=== PATIENT | female | born 1935 | race Caucasian/White ===

== ENCOUNTER → 2017-02-15 | Outpatient (CLI) | payer OTHER ==
[~2017-02-15] MED LIST: ADVIN10/60 INH; LEVO88TA PO; PRLSR20 PO; [UNRECOGNIZED DRUG - CODE] INH
--- NOTE | 2017-02-15 13:05 | MAMMOGRAPHY REPORT ---
BILATERAL DIGITAL SCREENING MAMMOGRAM WITH CAD: 02/15/2017 CLINICAL HISTORY: Routine screening. TECHNIQUE: Current study was also evaluated with a Computer Aided Detection (CAD) system. Bilateral CC and MLO views were obtained. COMPARISON: Comparison is made to exams dated: 02/11/2016 mammogram, 01/13/2015 mammogram, 06/18/2013 mammogram, 06/15/2012 mammogram, 06/14/2011 mammogram, and 06/10/2010 mammogram - [facility]. BREAST COMPOSITION: The tissue of both breasts is almost entirely fatty. FINDINGS: No suspicious masses, calcifications, or areas of architectural distortion are noted in ei ther breast. There has been no significant interval change compared to prior exams. Scattered bilater al benign-appearing calcifications are not significantly changed. IMPRESSION: ACR BI-RADS CATEGORY 2: BENIGN There is no mammographic evidence of malignancy. A 1 year screening mammogram is recommended. The pa tient will receive written notification of the results. Approximately 10% of breast cancers are not detected with mammography. A negative mammographic report should not delay biopsy if a clinically suggestive mass is present. Hayley Morales M.D. /:02/15/2017 12:13:00 Inspector Outside Production: Irene MCRAE(Darshana)(M), [facility] letter sent: Normal 1/2 BI-RADS Code: ACR BI-RADS Category 2: Benign
== END | disposition home or self-care (01) ==
LOC: C.MAMM 10:51
PROVIDERS: ATTEND Internal Medicine Pulmonary Disease
DX: Z12.31 Encounter for screening mammogram for malignant neoplasm of breast (principal)

== ENCOUNTER → 2017-06-06 | Outpatient (CLI) | payer OTHER ==
[2017-06-06 09:39] LABS: BASO % 0.4 %; BASO ABS # 0.03 K/uL (0-0.2); COMPLETE YES; EOS % 3.5 %; HEMATOCRIT 38.8 % (37-47); IG% 0.1 %; LYMPH % 25.1 %; LYMPH ABS # 1.78 K/uL (1.2-3.4); MEAN CELL VOLUME 85.3 fL (80-100); MEAN CORPUSCULAR HEMOGLOBIN 27.5 pg (25-34); MEAN CORPUSCULAR HGB CONC 32.2 g/dl (32-36); MEAN PLATELET VOLUME 10.5 fL (7.4-10.4); MONO % 8.7 %; NEUT % 62.2 %; PLATELET COUNT 285 K/uL (130-400); RED BLOOD COUNT 4.55 M/uL (4.2-5.4)
[2017-06-06 10:03] LABS: ALT/SGPT 25 U/L (12-78); AST/SGOT 23 U/L (15-37); BLOOD UREA NITROGEN 17 mg/dl (7-18); BUN/CREATININE RATIO 28.5 (10-20); CALCIUM 8.7 mg/dl (8.5-10.1); CARBON DIOXIDE 27 mmol/L (21-32); CHLORIDE 105 mmol/L (98-107); CHOLESTEROL 237 mg/dl (0-200); CREATININE 0.61 mg/dl (0.60-1.20); GLUCOSE 118 mg/dl (70-99); POTASSIUM 4.2 mmol/L (3.5-5.1); SODIUM 138 mmol/L (136-145); TRIGLYCERIDES 94 mg/dl (0-150); VERY LOW DENSITY LIPOPROT CALC 19 mg/dl
[2017-06-06 10:13] LABS: ALKALINE PHOSPHATASE 82 U/L (45-117); CHOLESTEROL/HDL RATIO 4.1; HDL CHOLESTEROL 58 mg/dl; LDL CHOLESTEROL CALCULATED 160 mg/dl; THYROID STIMULATING HORMONE 0.559 uIu/ml (0.300-4.500)
== END | disposition home or self-care (01) ==
LOC: C.LAB1850 08:38
PROVIDERS: ATTEND Internal Medicine Pulmonary Disease
DX: J45.909 Unspecified asthma, uncomplicated (principal); E78.5 Hyperlipidemia, unspecified; E03.9 Hypothyroidism, unspecified; G60.0 Hereditary motor and sensory neuropathy

== ENCOUNTER 2017-08-13 09:40 | Emergency (ER) | payer OTHER ==
[~2017-08-13] VITALS: Ht 157.5 cm; Wt 77.4 kg
[2017-08-13 09:46] VITALS: Ht 157.5 cm; Wt 77.4 kg
[2017-08-13] MEDS ORDERED: ALBUT/IPRATROP 3MG/0.5MG NEB 3 ML VIAL INH STA ×2 (10:35→12:13)
--- NOTE | 2017-08-13 10:42 | EMERGENCY ROOM VISIT NOTE ---
History Report prepared by Alba: Fabiano Kaur Under the Supervision of: Dr. Ilya Ceja M.D. First contact with patient: 10:19 Chief Complaint: RESPIRATORY PROBLEMS Stated Complaint: COLD,RESPIRATORY ISSUES,ASTHMA Nursing Triage Summary: pt reports cold and cough with lots of flem yellow mucus. pt reports unable to lie down due to mucus has upset stomach, ear plugged, and head feels full. has tightness in chest from coughing and hx of asthma History of Present Illness The patient is an 82 year old female who presents to the Emergency Room with complaints of persistent productive cough with yellow sputum for three days RADIOGRAPHER MAMMOGRAPHER. She notes loss of sleep, headache, body aches, chest tightness, sick contacts, and left ear plugged. She currently rates her pain 1/10 in severity. She denies any fevers, shortness of breath, abdominal pain, leg pain, or leg swelling. She has a history of asthma and regularly takes Advair. She notes that she has been using Albuterol treatments, though she normally does not have to use Albuterol. She has braces on both legs. Source of History: patient Onset: three days RADIOGRAPHER MAMMOGRAPHER Position: other (global ) Symptom Intensity: 1/10 Quality: other (productive cough) Timing: other (persistent) Associated Symptoms: + headache, + chest pain (chest tightness), No fevers, No SOB, No abdominal pain Note: She notes loss of sleep, body aches, sick contacts, and left ear "plugged." She denies any leg pain or leg swelling. Review of Systems All systems have been listed, reviewed, and are negative other than those previously mentioned. Please see Additional Medical History Sheet. Past Medical & Surgical Medical Problems: (1) Asthma (2) Bronchitis (3) Gjcxhbl-Tqyzx-Wwgiz disease (4) Kidney disease (5) Ulcer Surgical Problems: (1) History of hysterectomy (2) Hx of tonsillectomy Family History Cancer Diabetes mellitus Heart disease Hypertension Lung disease Social History Smoking Status: Never Smoker Alcohol Use: none Marital Status: single Housing Status: lives alone Occupation Status: unemployed Current/Historical Medications Scheduled Fluticasone Prop/Salmeterol (Advair Diskus 100/50 Mcg *), 1 PUFF INH DAILY Levothyroxine Sodium (Synthroid), 88 MCG PO DAILY Omeprazole (Prilosec), 20 MG PO DAILY Prednisone (Prednisone), 20 MG PO BID Sulfa/Trimethoprim (Bactrim Ds 800MG/160MG), 1 TAB PO BID Allergies Coded Allergies: No Known Drug Allergy (Verified Allergy, Unknown, ., 08/13/17) Physical Exam Vital Signs Date Time Temp Pulse Resp B/P (MAP) Pulse Ox O2 Delivery O2 Flow Rate FiO2 08/13/17 14:46 36.8 107 15 169/76 94 08/13/17 14:36 107 15 94 08/13/17 14:31 169/76 08/13/17 14:06 115 20 93 08/13/17 14:01 160/52 08/13/17 13:36 90 12 99 08/13/17 13:31 142/65 08/13/17 13:25 88 22 98 Room Air 08/13/17 13:02 139/92 08/13/17 13:02 92 20 139/92 99 Room Air 08/13/17 12:50 97 16 98 08/13/17 12:31 146/82 08/13/17 12:30 104 16 94 Room Air 08/13/17 12:20 106 14 90 08/13/17 12:02 196/85 08/13/17 11:50 93 12 97 08/13/17 11:45 90 14 98 08/13/17 11:32 144/56 08/13/17 11:15 97 14 98 08/13/17 11:10 92 13 93 08/13/17 11:03 93 Room Air 08/13/17 11:01 152/78 08/13/17 10:40 105 24 95 08/13/17 10:31 173/80 08/13/17 10:10 92 16 95 08/13/17 10:04 99 08/13/17 10:01 182/88 08/13/17 09:46 36.8 112 20 191/74 94 Room Air Physical Exam GENERAL: Patient awake, alert, oriented x 3. Patient follows commands. Patient does not appear toxic. Patient is adequately hydrated and well- nourished. SKIN: No erythema, pallor, cyanosis or rash HEENT: Normal head, pupils equal, reactive to light and accommodation. Cerumen impaction in left ear. Slight erythema to posterior oropharynx. No pus. No exudates. Neck: Without adenopathy, no neck vein distention. LUNGS: Clear to auscultation. No wheezes, no rales, no rhonchi. HEART: No murmurs. No gallops. No rubs ABDOMEN: No masses, no rebound, no hepatomegaly or splenomegaly. EXTREMITIES: No signs of trauma. No pedal or pretibial edema. No calf or thigh tenderness. Braces on legs bilaterally. NEUROLOGIC: Cranial nerves II-XII within normal limits. No gross motor sensory function deficits. Medical Decision & Procedures ER Provider Diagnostic Interpretation: Radiology results as stated below per my review and radiologist interpretation: CHEST 2 VIEWS ROUTINE CLINICAL HISTORY: wheezing COMPARISON STUDY: No previous studies for comparison. FINDINGS: The heart is at the upper limits of normal in size. There is no failure. There are old left-sided rib fractures. There is right middle lobe finding loss/consolidation. This is age-indeterminate. Clinical and radiographic follow-up is recommended.[ There are old wedge compression deformities near the thoracolumbar junction with mild secondary gibbus deformities IMPRESSION: 1. Age indeterminate right middle lobe volume loss/consolidation. Clinical and radiographic follow-up is recommended.. Electronically signed by: Addison Cabezas M.D. 08/13/2017 12:06 PM Dictated Date/Time: 08/13/2017 12:03 PM Laboratory Results 08/13/17 10:56 Red Blood Count 4.58, Mean Corpuscular Volume 84.9, Mean Corpuscular Hemoglobin 27.5, Mean Corpuscular Hemoglobin Concent 32.4, Mean Platelet Volume 9.7, Neutrophils (%) (Auto) 70.5, Lymphocytes (%) (Auto) 15.4, Monocytes (%) (Auto) 12.2, Eosinophils (%) (Auto) 1.4, Basophils (%) (Auto) 0.3, Neutrophils # (Auto ) 4.17, Lymphocytes # (Auto) 0.91, Monocytes # (Auto) 0.72, Eosinophils # (Auto ) 0.08, Basophils # (Auto) 0.02 08/13/17 10:56 Test 08/13/17 10:56 White Blood Count 5.91 K/uL (4.8-10.8) Red Blood Count 4.58 M/uL (4.2-5.4) Hemoglobin 12.6 g/dL (12.0-16.0) Hematocrit 38.9 % (37-47) Mean Corpuscular Volume 84.9 fL (80-100) Mean Corpuscular Hemoglobin 27.5 pg (25-34) Mean Corpuscular Hemoglobin Concent 32.4 g/dl (32-36) Platelet Count 262 K/uL (130-400) Mean Platelet Volume 9.7 fL (7.4-10.4) Neutrophils (%) (Auto) 70.5 % Lymphocytes (%) (Auto) 15.4 % Monocytes (%) (Auto) 12.2 % Eosinophils (%) (Auto) 1.4 % Basophils (%) (Auto) 0.3 % Neutrophils # (Auto) 4.17 K/uL (1.4-6.5) Lymphocytes # (Auto) 0.91 K/uL (1.2-3.4) Monocytes # (Auto) 0.72 K/uL (0.11-0.59) Eosinophils # (Auto) 0.08 K/uL (0-0.5) Basophils # (Auto) 0.02 K/uL (0-0.2) RDW Standard Deviation 47.8 fL (36.4-46.3) RDW Coefficient of Variation 15.4 % (11.5-14.5) Immature Granulocyte % (Auto) 0.2 % Immature Granulocyte # (Auto) 0.01 K/uL (0.00-0.02) Anion Gap 8.0 mmol/L (3-11) Est Creatinine Clear Calc Drug Dose 61.8 ml/min Estimated GFR () 94.8 Estimated GFR (Non- 81.8 BUN/Creatinine Ratio 22.7 (10-20) Calcium Level 9.0 mg/dl (8.5-10.1) Troponin I < 0.015 ng/ml (0-0.045) Laboratory results as stated above per my review. Medications Administered Medications (Trade) Dose Ordered Sig/Sania Route Start Time Stop Time Status Last Admin Dose Admin Albuterol/ Ipratropium (Duoneb) 3 ml NOW STAT INH 08/13/17 10:35 08/13/17 10:37 DC 08/13/17 11:11 3 ML Albuterol/ Ipratropium (Duoneb) 12 ml ONE ONCE INH 08/13/17 12:15 08/13/17 12:16 DC 08/13/17 12:30 12 ML Methylprednisolone Sodium Succinate (Solu-Medrol IV) 80 mg NOW STAT IV 08/13/17 12:14 08/13/17 12:16 DC 08/13/17 12:52 80 MG ECG Indication: other (productive cough) Rate (beats per minute): 102 Findings: nonspecific-ST abn, PVC (occasional ) ED Course 1033: Past medical records reviewed. The patient was evaluated in room B2. A complete history and physical examination was performed. 1035: Ordered Duoneb 3 ml INH 1210: I reassessed the patient at this time. She is still wheezing, though improved. 1214: Ordered Solu-Medrol 80 mg IV 1215: Ordered Duoneb 12 ml INH 1341: I reassessed the patient at this time. She is still receiving her breathing treatment. 1427: I reassessed the patient at this time. She has faint wheezing, though markedly improved. I discussed the results and treatment plan with the patient. I answered all pertaining questions that she had. She expressed understanding and verbalized agreement. The patient will be discharged home. Medical Decision Nurses notes reviewed. Medical history sheet reviewed. Differential diagnosis includes but is not limited to: asthma, bronchitis, and CHF. The patient had significant wheezes on arrival. Multiple labs and imaging were obtained. Please see above. The patient's white count is not elevated. The patient has a questionable consolidation in the right middle lobe. This is most likely old. The patient was given a one time DuoNeb but later required a second one hour long DuoNeb treatment. The patient had dramatic improvement and only slight wheezes at time of discharge. The patient was also given Solu- Medrol IV. The patient was discharged with prescription of Bactrim. The patient is to be re-evaluated by her family physician within the next several days or return here sooner if symptoms worsen. Medication Reconcilliation Current Medication List: was personally reviewed by me Blood Pressure Screening Patient's blood pressure: Elevated blood pressure Blood pressure disposition: Referred to PCP Impression Primary Impression: Acute asthmatic bronchitis Scribe Attestation The scribe's documentation has been prepared under my direction and personally reviewed by me in its entirety. I confirm that the note above accurately reflects all work, treatment, procedures, and medical decision making performed by me. Departure Information Dispostion Home / Self-Care Prescriptions Sulfa/Trimethoprim (Bactrim Ds 800MG/160MG) Tab 1 TAB PO BID, #20 TAB Prov: Ilya Ceja M.D. 08/13/17 Prednisone (Prednisone) 20 Mg Tab 20 MG PO BID for 5 Days, #10 TAB Prov: Ilya Ceja M.D. 08/13/17 Referrals Michel Cesar M.D. (PCP) Forms HOME CARE DOCUMENTATION FORM, IMPORTANT VISIT INFORMATION, WORK / SCHOOL INSTRUCTIONS Patient Instructions My [facility] Additional Instructions 1 Bactrim twice a day for 10 days. 1 prednisone twice a day for 5 days. Use your albuterol inhaler every 2-4 hours as needed for wheezing. REST Follow-up with your family physician within the next 5-7 days. Return here sooner if you become more short of breath.
[2017-08-13 11:03] VITALS: O2SAT 93
[2017-08-13 11:08] LABS: BASO % 0.3 %; BASO ABS # 0.02 K/uL (0-0.2); EOS % 1.4 %; EOS ABS # 0.08 K/uL (0-0.5); HEMATOCRIT 38.9 % (37-47); HEMOGLOBIN 12.6 g/dL (12.0-16.0); IG# 0.01 K/uL (0.00-0.02); LYMPH % 15.4 %; LYMPH ABS # 0.91 K/uL (1.2-3.4); MEAN CELL VOLUME 84.9 fL (80-100); MEAN CORPUSCULAR HEMOGLOBIN 27.5 pg (25-34); MEAN CORPUSCULAR HGB CONC 32.4 g/dl (32-36); MEAN PLATELET VOLUME 9.7 fL (7.4-10.4); MONO % 12.2 %; MONO ABS # 0.72 K/uL (0.11-0.59); NEUT % 70.5 %; NEUT ABS # 4.17 K/uL (1.4-6.5); PLATELET COUNT 262 K/uL (130-400); RED CELL DISTRIBUTION WIDTH CV 15.4 % (11.5-14.5); RED CELL DISTRIBUTION WIDTH SD 47.8 fL (36.4-46.3); WHITE BLOOD COUNT 5.91 K/uL (4.8-10.8)
[2017-08-13 11:20] LABS: BLOOD UREA NITROGEN 16 mg/dl (7-18); CARBON DIOXIDE 26 mmol/L (21-32); GLUCOSE 146 mg/dl (70-99); POTASSIUM 3.7 mmol/L (3.5-5.1); SODIUM 140 mmol/L (136-145)
--- NOTE | 2017-08-13 12:07 | DIAGNOSTIC IMAGING REPORT ---
CHEST 2 VIEWS ROUTINE CLINICAL HISTORY: wheezing COMPARISON STUDY: No previous studies for comparison. FINDINGS: The heart is at the upper limits of normal in size. There is no failure. There are old left-sided rib fractures. There is right middle lobe finding loss/consolidation. This is age-indeterminate. Clinical and radiographic follow-up is recommended.[ There are old wedge compression deformities near the thoracolumbar junction with mild secondary gibbus deformities IMPRESSION: 1. Age indeterminate right middle lobe volume loss/consolidation. Clinical and radiographic follow-up is recommended.. Electronically signed by: Addison Cabezas M.D. 08/13/2017 12:06 PM Dictated Date/Time: 08/13/2017 12:03 PM
[2017-08-13] MEDS ORDERED: METHYLPREDNISOLONE 125 MG VIAL IV STA (12:14)
[2017-08-13] MEDS ORDERED: ALBUT/IPRATROP 3MG/0.5MG NEB 3 ML VIAL INH ONE (12:15)
[2017-08-13 12:30] VITALS: PULSE 104; O2SAT 94
[2017-08-13] MEDS ORDERED: SULF800T23 PO (14:30)
[2017-08-13] MEDS ORDERED: PRED20TA PO (14:30)
[2017-08-13 14:46] VITALS: BP 169/76; PULSE 107; TEMP 36.8; O2SAT 94
[2017-11-16] MEDS ORDERED: ASPI-320 PO (09:07)
[2018-03-04] MEDS ORDERED: FERR50TA3 (14:40)
[2018-03-07] MEDS ORDERED: ACET-1047 PO (14:03)
[2018-03-07] MEDS ORDERED: RXC5 PO (14:03)
[2018-03-07] MEDS ORDERED: LVNIS40 SQ (14:03)
== END 2017-08-13 14:47 | disposition home or self-care (01) ==
LOC: C.EDB 09:42
DX: J45.901 Unspecified asthma with (acute) exacerbation (principal); G60.0 Hereditary motor and sensory neuropathy; Z90.710 Acquired absence of both cervix and uterus; Z80.9 Family history of malignant neoplasm, unspecified; Z83.3 Family history of diabetes mellitus; Z82.49 Family history of ischemic heart disease and other diseases of the circulatory system; Z79.899 Other long term (current) drug therapy

== ENCOUNTER → 2017-10-04 | Outpatient (CLI) | payer OTHER ==
[~2017-10-04] MED LIST changes: +SULF800T23 PO; -[UNRECOGNIZED DRUG - CODE] INH
--- NOTE | 2017-10-04 11:02 | DIAGNOSTIC IMAGING REPORT ---
CHEST 2 VIEWS ROUTINE CLINICAL HISTORY: Acute bronchitis. COMPARISON STUDY: Chest radiograph August 13, 2017. FINDINGS: Lateral view demonstrates old compression deformity at the thoracolumbar junction. Lung volumes are normal. No pneumothorax or pleural effusion is noted. There is no consolidation to suggest pneumonia. Right middle lobe airspace opacity shown on exam of August 13, 2017 has resolved. Lingular opacity suggests atelectasis. There is no evidence for pulmonary edema. Mild cardiomegaly is unchanged. IMPRESSION: 1. Interval resolution of right middle lobe airspace opacity shown on exam of August 13, 2017. 2. No acute cardiopulmonary findings. Electronically signed by: Gonzales Norwood M.D. 10/04/2017 11:01 AM Dictated Date/Time: 10/04/2017 10:59 AM
== END | disposition home or self-care (01) ==
LOC: C.RAD1850 10:47
PROVIDERS: ATTEND Physician Assistant Medical
DX: J20.9 Acute bronchitis, unspecified (principal)

== ENCOUNTER 2017-11-12 16:40 | Inpatient (IN) | payer OTHER ==
[~2017-11-12] VITALS: Ht 157.5 cm; Wt 79.2 kg
--- NOTE | 2017-11-12 16:56 | EMERGENCY ROOM VISIT NOTE ---
History Report prepared by Alba: Rubi Sue Under the Supervision of: Dr. Crescencio Sanches M.D. First contact with patient: 16:46 Stated Complaint: FALL, HIP PAIN History of Present Illness The patient is an 82 year old female who presents to the Emergency Room with complaints of persistent hip pain that started a couple of hours ago. The patient rates her pain an 8/10 in severity. The patient states she was at a constitution party and fell and hurt her hip. She notes she did not hear a pop but she was unable to lift her leg. She reports she hit her head when she fell but it does not hurt. She notes she is also experiencing knee pain and wrist pain. She denies any abdominal pain. The patient has Uohrutm-Hrryy-Nzwfx disease. Source of History: patient Onset: a couple of hours ago Position: other (hip) Symptom Intensity: 8/10 Timing: other (persistent) Associated Symptoms: No abdominal pain Note: Additional symptoms: knee pain, wrist pain. Review of Systems See HPI for pertinent positives & negatives. A total of 10 systems reviewed and were otherwise negative. Past Medical & Surgical Medical Problems: (1) Asthma (2) Bronchitis (3) Qsozugh-Kuxlf-Rwnxs disease (4) Closed left hip fracture (5) Kidney disease (6) Ulcer Surgical Problems: (1) History of hysterectomy (2) Hx of tonsillectomy Family History Cancer Diabetes mellitus Heart disease Hypertension Lung disease Social History Smoking Status: Never Smoker Alcohol Use: none Marital Status: single Housing Status: lives alone Occupation Status: unemployed Current/Historical Medications Scheduled Fluticasone Prop/Salmeterol (Advair Diskus 100/50 60 Dose), 1 PUFF INH BID Levothyroxine Sodium (Synthroid), 88 MCG PO DAILY Omeprazole (Prilosec), 20 MG PO DAILY Allergies Coded Allergies: No Known Drug Allergy (Verified Allergy, Unknown, ., 08/13/17) Physical Exam Vital Signs Date Time Temp Pulse Resp B/P (MAP) Pulse Ox O2 Delivery O2 Flow Rate FiO2 11/12/17 18:10 89 18 156/90 98 Room Air 11/12/17 16:50 36.6 78 18 185/92 96 Room Air Physical Exam GENERAL: Patient is uncomfortable appearing and in moderate distress. EYES: No scleral icterus, unremarkable pupils. ENT: Mucous membranes moist, no nasal congestion. NECK: No masses appreciated, no meningismus, trachea is midline. RESPIRATORY: No dyspnea. Clear to auscultation and equal bilaterally. No wheeze , no rhonchi. CARDIOVASCULAR: Regular rate and rhythm. No murmurs, rubs, gallops appreciated. GASTROINTESTINAL: Abdomen soft, nontender, no peritonitis. Bowel sounds positive. No masses appreciated. BACK: No midline tenderness, no CVA tenderness EXTREMITIES: Shortened left leg, mildly rotated externally. Swelling over top of left wrist pain. Limited range of motion of left hip. Right foot is in brace. NEUROLOGIC: Alert and oriented, no acute motor or sensory deficits, no focal weakness, cranial nerves grossly intact. SKIN: No rash, no jaundice, no diaphoresis. Medical Decision & Procedures ER Provider Diagnostic Interpretation: Radiology results and stated below per my review and radiologist interpretation: PELVIS 1 OR 2 VIEW ROUTINE CLINICAL HISTORY: 82 years-old Female presenting with fall left hip pain s/p fall. TECHNIQUE: Single frontal view of the pelvis was obtained. COMPARISON: None. FINDINGS: Angulated mildly comminuted intertrochanteric fracture of the left femur. The lesser tuberosity is displaced medially. There is significant coxa vara angulation. Degenerative changes of the bilateral hip joints noted. The left femoral head remains congruent within the acetabulum. The remainder of the bony pelvis is intact. Degenerative changes of the lower lumbar spine. IMPRESSION: Angulated mildly comminuted intertrochanteric fracture of the left femur. The report will be called/faxed according to standard departmental protocol. Electronically signed by: Aaron Cortes M.D. 11/12/2017 6:01 PM Dictated Date/Time: 11/12/2017 6:00 PM L FEMUR 2 VIEWS ROUTINE CLINICAL HISTORY: 82 years-old Female presenting with fall left thigh pain pain. TECHNIQUE: Frontal and lateral views of the left femur were obtained. COMPARISON: None. FINDINGS: Angulated mildly comminuted intertrochanteric fracture of the left femur. The lesser tuberosity is significantly displaced medially. There is coxa vara angulation. The left femoral head remains congruent in the acetabulum. Degenerative changes evidenced by osteophytosis. The joint space of the left hip is preserved. The knee joint is grossly congruent. No additional femoral fracture. IMPRESSION: Angulated mildly comminuted intertrochanteric fracture of the left femur. Electronically signed by: Aaron Cortes M.D. 11/12/2017 6:03 PM Dictated Date/Time: 11/12/2017 6:01 PM CHEST ONE VIEW PORTABLE CLINICAL HISTORY: 82 years-old Female presenting with fall. TECHNIQUE: Portable supine AP view of the chest was obtained. COMPARISON: . FINDINGS: Atherosclerosis of the aortic arch. Cardiac silhouette top normal in size. No focal opacity. No large effusion or pneumothorax. Osseous structures normal. Upper abdomen normal. IMPRESSION: 1. No acute cardiopulmonary disease. Electronically signed by: Aaron Cortes M.D. 11/12/2017 6:03 PM Dictated Date/Time: 11/12/2017 6:03 PM L WRIST MIN 3 VIEWS ROUTINE CLINICAL HISTORY: 82 years-old Female presenting with left wrist pain s/p fall. TECHNIQUE: Frontal, bilateral oblique, and lateral views of the left wrist were obtained. COMPARISON: None. FINDINGS: Mildly impacted nondisplaced fracture of the distal radial metaphysis, which appears acute. This does not appear to extend into the radiocarpal articulation. Distal radial ulnar joint preserved. Osteophytosis, joint space loss, subchondral sclerosis, and cystic change at the first carpometacarpal articulation. Osteopenia suspected. Mild soft tissue swelling over the carpus suggested. IMPRESSION: 1. Acute impacted nondisplaced fracture of the distal radial metaphysis. 2. Advanced degenerative changes of the first carpometacarpal articulation characteristic of osteoarthritis. 3. Osteopenia. Electronically signed by: Aaron Cortes M.D. 11/12/2017 6:08 PM Dictated Date/Time: 11/12/2017 6:06 PM Laboratory Results 11/12/17 17:15 Red Blood Count 4.57, Mean Corpuscular Volume 83.2, Mean Corpuscular Hemoglobin 25.8, Mean Corpuscular Hemoglobin Concent 31.1, Mean Platelet Volume 9.8, Neutrophils (%) (Auto) 70.8, Lymphocytes (%) (Auto) 19.1, Monocytes (%) (Auto) 8.5, Eosinophils (%) (Auto) 0.9, Basophils (%) (Auto) 0.4, Neutrophils # (Auto) 5.45, Lymphocytes # (Auto) 1.47, Monocytes # (Auto) 0.65, Eosinophils # (Auto) 0.07, Basophils # (Auto) 0.03 11/12/17 17:15 Test 11/12/17 17:15 White Blood Count 7.69 K/uL (4.8-10.8) Red Blood Count 4.57 M/uL (4.2-5.4) Hemoglobin 11.8 g/dL (12.0-16.0) Hematocrit 38.0 % (37-47) Mean Corpuscular Volume 83.2 fL (80-100) Mean Corpuscular Hemoglobin 25.8 pg (25-34) Mean Corpuscular Hemoglobin Concent 31.1 g/dl (32-36) Platelet Count 259 K/uL (130-400) Mean Platelet Volume 9.8 fL (7.4-10.4) Neutrophils (%) (Auto) 70.8 % Lymphocytes (%) (Auto) 19.1 % Monocytes (%) (Auto) 8.5 % Eosinophils (%) (Auto) 0.9 % Basophils (%) (Auto) 0.4 % Neutrophils # (Auto) 5.45 K/uL (1.4-6.5) Lymphocytes # (Auto) 1.47 K/uL (1.2-3.4) Monocytes # (Auto) 0.65 K/uL (0.11-0.59) Eosinophils # (Auto) 0.07 K/uL (0-0.5) Basophils # (Auto) 0.03 K/uL (0-0.2) RDW Standard Deviation 48.8 fL (36.4-46.3) RDW Coefficient of Variation 16.0 % (11.5-14.5) Immature Granulocyte % (Auto) 0.3 % Immature Granulocyte # (Auto) 0.02 K/uL (0.00-0.02) Prothrombin Time 10.1 SECONDS (9.0-12.0) Prothromb Time International Ratio 1.0 (0.9-1.1) Activated Partial Thromboplast Time 21.9 SECONDS (21.0-31.0) Partial Thromboplastin Ratio 0.8 Anion Gap 10.0 mmol/L (3-11) Est Creatinine Clear Calc Drug Dose 63.4 ml/min Estimated GFR () 95.3 Estimated GFR (Non- 82.2 BUN/Creatinine Ratio 28.2 (10-20) Calcium Level 8.5 mg/dl (8.5-10.1) Laboratory results as reviewed by me. Medications Administered Medications (Trade) Dose Ordered Sig/Sania Route Start Time Stop Time Status Last Admin Dose Admin Fentanyl Citrate (Fentanyl Inj) 25 mcg NOW STAT IV 11/12/17 17:02 11/12/17 17:04 DC 11/12/17 17:12 25 MCG Oxycodone HCl (Roxicodone Immediate Rel Tab) 5 mg Q4H PRN PO 11/12/17 18:45 11/26/17 18:44 11/12/17 21:36 5 MG ED Course 1645: The patient was evaluated in room C3. A complete history and physical exam was performed. 1754: The patient is still at XRAY but I discussed findings with her daughter. 1809: Paged Dr. Jennings, [facility] [place] [place] and [facility]. 1830: I spoke with Dr. Cai, [facility] and he is agreeable with the treatment. He will evaluate the patient for further management. Medical Decision 82 yr old female arrives with complaint of left hip/thigh pain s/p fall. No evidence of ICH and not on blood thinner thus I feel CT imaging brain/neck not indicated. Besides hip has some mild left wrist pain with some swelling. She has history of Skxxkag-Kcvmp-Buyfg but denies history of blood thinner use. Imaging reveals left intertroch hip fracture and left non-displaced distal radius fracture. Medicine to bring in and I made Ortho aware as well. Head Trauma GCS Score: 15 Medication Reconcilliation Current Medication List: was personally reviewed by me Consults Time Called: 1809 Consulting Physician: Dr. Cai Returned Call: [address] Cai, [facility] and he is agreeable with the treatment. He will evaluate the patient for further management. Impression Primary Impression: Closed left hip fracture Additional Impression: Fracture of left distal radius Scribe Attestation The scribe's documentation has been prepared under my direction and personally reviewed by me in its entirety. I confirm that the note above accurately reflects all work, treatment, procedures, and medical decision making performed by me. Departure Information Dispostion Being Evaluated By Hospitalist Referrals Michel Cesar M.D. (PCP) Problem Qualifiers
[2017-11-12] MEDS ORDERED: FENTANYL CITRATE INJ 50 MCG/1 ML 2 ML VIAL IV STA (17:02)
[2017-11-12 17:28] LABS: BASO % 0.4 %; BASO ABS # 0.03 K/uL (0-0.2); EOS % 0.9 %; EOS ABS # 0.07 K/uL (0-0.5); HEMOGLOBIN 11.8 g/dL (12.0-16.0); IG# 0.02 K/uL (0.00-0.02); LYMPH % 19.1 %; LYMPH ABS # 1.47 K/uL (1.2-3.4); MEAN CELL VOLUME 83.2 fL (80-100); MEAN CORPUSCULAR HEMOGLOBIN 25.8 pg (25-34); MEAN CORPUSCULAR HGB CONC 31.1 g/dl (32-36); MEAN PLATELET VOLUME 9.8 fL (7.4-10.4); MONO % 8.5 %; MONO ABS # 0.65 K/uL (0.11-0.59); NEUT % 70.8 %; NEUT ABS # 5.45 K/uL (1.4-6.5); PLATELET COUNT 259 K/uL (130-400); RED CELL DISTRIBUTION WIDTH SD 48.8 fL (36.4-46.3); WHITE BLOOD COUNT 7.69 K/uL (4.8-10.8)
[2017-11-12 17:36] LABS: PTT PATIENT 21.9 SECONDS (21.0-31.0)
[2017-11-12 17:45] LABS: CALCIUM 8.5 mg/dl (8.5-10.1); CREATININE 0.69 mg/dl (0.60-1.20); POTASSIUM 3.7 mmol/L (3.5-5.1)
--- NOTE | 2017-11-12 18:03 | DIAGNOSTIC IMAGING REPORT ---
PELVIS 1 OR 2 VIEW ROUTINE CLINICAL HISTORY: 82 years-old Female presenting with fall left hip pain s/p fall. TECHNIQUE: Single frontal view of the pelvis was obtained. COMPARISON: None. FINDINGS: Angulated mildly comminuted intertrochanteric fracture of the left femur. The lesser tuberosity is displaced medially. There is significant coxa vara angulation. Degenerative changes of the bilateral hip joints noted. The left femoral head remains congruent within the acetabulum. The remainder of the bony pelvis is intact. Degenerative changes of the lower lumbar spine. IMPRESSION: Angulated mildly comminuted intertrochanteric fracture of the left femur. The report will be called/faxed according to standard departmental protocol. Electronically signed by: Aaron Cortes M.D. 11/12/2017 6:01 PM Dictated Date/Time: 11/12/2017 6:00 PM
--- NOTE | 2017-11-12 18:04 | DIAGNOSTIC IMAGING REPORT ---
L FEMUR 2 VIEWS ROUTINE CLINICAL HISTORY: 82 years-old Female presenting with fall left thigh pain pain. TECHNIQUE: Frontal and lateral views of the left femur were obtained. COMPARISON: None. FINDINGS: Angulated mildly comminuted intertrochanteric fracture of the left femur. The lesser tuberosity is significantly displaced medially. There is coxa vara angulation. The left femoral head remains congruent in the acetabulum. Degenerative changes evidenced by osteophytosis. The joint space of the left hip is preserved. The knee joint is grossly congruent. No additional femoral fracture. IMPRESSION: Angulated mildly comminuted intertrochanteric fracture of the left femur. Electronically signed by: Aaron Cortes M.D. 11/12/2017 6:03 PM Dictated Date/Time: 11/12/2017 6:01 PM
--- NOTE | 2017-11-12 18:05 | DIAGNOSTIC IMAGING REPORT ---
CHEST ONE VIEW PORTABLE CLINICAL HISTORY: 82 years-old Female presenting with fall. TECHNIQUE: Portable supine AP view of the chest was obtained. COMPARISON: . FINDINGS: Atherosclerosis of the aortic arch. Cardiac silhouette top normal in size. No focal opacity. No large effusion or pneumothorax. Osseous structures normal. Upper abdomen normal. IMPRESSION: 1. No acute cardiopulmonary disease. Electronically signed by: Aaron Cortes M.D. 11/12/2017 6:03 PM Dictated Date/Time: 11/12/2017 6:03 PM
--- NOTE | 2017-11-12 18:10 | DIAGNOSTIC IMAGING REPORT ---
L WRIST MIN 3 VIEWS ROUTINE CLINICAL HISTORY: 82 years-old Female presenting with left wrist pain s/p fall. TECHNIQUE: Frontal, bilateral oblique, and lateral views of the left wrist were obtained. COMPARISON: None. FINDINGS: Mildly impacted nondisplaced fracture of the distal radial metaphysis, which appears acute. This does not appear to extend into the radiocarpal articulation. Distal radial ulnar joint preserved. Osteophytosis, joint space loss, subchondral sclerosis, and cystic change at the first carpometacarpal articulation. Osteopenia suspected. Mild soft tissue swelling over the carpus suggested. IMPRESSION: 1. Acute impacted nondisplaced fracture of the distal radial metaphysis. 2. Advanced degenerative changes of the first carpometacarpal articulation characteristic of osteoarthritis. 3. Osteopenia. Electronically signed by: Aaron Cortes M.D. 11/12/2017 6:08 PM Dictated Date/Time: 11/12/2017 6:06 PM
[2017-11-12] MEDS ORDERED: ADVIN10/60 INH (18:14)
[2017-11-12] MEDS ORDERED: HYDROmorphone INJ 0.5 MG/0.5 ML SYR IV PRN (18:45)
[2017-11-12] MEDS ORDERED: ALUMINUM/MAGNESIUM/SIMETH (MAALOX MAX) 30 ML UDC PO PRN (18:45)
[2017-11-12] MEDS ORDERED: SOD PHOSPHATE/SOD BIPHOSPHATE ENEMA 132 ML BTL PR PRN (18:45)
[2017-11-12] MEDS ORDERED: ACETAMINOPHEN 325 MG TAB PO PRN (18:45)
[2017-11-12] MEDS ORDERED: MoRPHine SULFATE 2 MG/ML CARP IV PRN (18:45)
[2017-11-12] MEDS ORDERED: ONDANSETRON INJ 2 MG/ML 2 ML VIAL IV PRN (18:45)
[2017-11-12] MEDS ORDERED: ZOLPIDEM TARTRATE 5 MG TAB PO PRN ×2 (18:45)
[2017-11-12] MEDS ORDERED: POLYETHYLENE (MIRALAX) 17 GM PACK PO PRN ×2 (18:45)
[2017-11-12] MEDS ORDERED: MAGNESIUM HYDROXIDE SUSP 30 ML UDC PO PRN ×2 (18:45)
[2017-11-12] MEDS ORDERED: BISACODYL 10 MG SUPP PR PRN (18:45)
[2017-11-12] MEDS ORDERED: NALOXONE HCL 0.4 MG/1 ML VIAL/CARP IV PRN (18:45)
--- NOTE | 2017-11-12 19:05 | History and Physical ---
History & Physical Date & Time of Service: Nov 12, 2017 at 18:51 Chief Complaint: Fall, Hip Pain Primary Care Physician: Michel Cesar M.D. History of Present Illness Source: patient, family 82 years old female with Hx of Gwnvefv-Ityqt-Myowm disease, hypothyroidism and asthma. was in her regular state of health until today. she tripped over her toe ( secondary to her Uhcngkc-Gimje-Zbodu disease she has a foot drop ). she fell on the floor and hit her left hip and left wrist. she did not hit her head, did not loose consciousness imaging in ED showed Acute impacted nondisplaced fracture of the distal radial metaphysis and Angulated mildly comminuted intertrochanteric fracture of the left femur. Past Medical/Surgical History Medical Problems: (1) Acute asthmatic bronchitis (2) Asthma (3) Bronchitis (4) Vyxhzvo-Lbuzw-Iwltv disease (5) Closed left hip fracture (6) Foot fracture (7) Foot injury (8) Kidney disease (9) Ulcer Surgical Problems: (1) History of hysterectomy (2) Hx of tonsillectomy Family History Cancer Diabetes mellitus Heart disease Hypertension Lung disease Social History Smoking Status: Never Smoker Marital Status: single Occupational Status: unemployed Allergies Coded Allergies: No Known Drug Allergy (Verified Allergy, Unknown, ., 08/13/17) Home Medications Scheduled Fluticasone Prop/Salmeterol (Advair Diskus 100/50 60 Dose), 1 PUFF INH BID Levothyroxine Sodium (Synthroid), 88 MCG PO DAILY Omeprazole (Prilosec), 20 MG PO DAILY Review of Systems Review of system Constitutional: No fever / no chills / no sweats / no weakness / no fatigue Eyes: no blurring of vision / no eye pain / no discharge / no redness ENT: no hearing loss / no epistaxis /no swallowing problems Respiratory: no cough / no wheezing / no SOB / no hemoptysis Cardiovascular: no Chest pain / no lower extremity edema / no palpitation Abdomen: no pain / no nausea / no vomiting / no constipation Musculoskeletal: Unable to move her left lower extremity after the fall, had pain in her left hip, also had pain on her left wrist Genitourinary: no dysuria / no incontinence / no urinary retention Neurologic: no focal weakness / no numbness/tingling / no ataxia Psychiatric: no depression symptoms / no anxiety / no insomnia Endocrine: no excessive thirst / no excessive urination Hematologic: no abnormal bleeding / no bruising / no LN swelling Skin: No rash / no pallor Physical Exam Vital Signs Date Time Temp Pulse Resp B/P (MAP) Pulse Ox O2 Delivery O2 Flow Rate FiO2 11/12/17 18:10 89 18 156/90 98 Room Air 11/12/17 16:50 36.6 78 18 185/92 96 Room Air Physical examination General patient appears to be comfortable, not in acute distress HEENT: Atraumatic , normocephalic /no jaundice /no pallor /anicteric /no dry mucous membrane /normal external ear inspection Neck: Supple /no swelling /central trach Heart: S1/S2 normal/regular rate and rhythm/no gallop /no rub /no murmur Lungs: Clear to auscultation bilaterally/normal chest with expansion/no rhonchi/ no rales/no wheezing/no use of accessory muscles of respiration Abdomen: Soft/nontender/no guarding/no rebound/no organomegaly/no pulsatile mass Musculoskeletal: Decreased range of motion and left hip left lower extremity, both feet has some deformity which is chronic Neuro exam: Awake alert oriented 3/cranial nerves II through XII appear to be intact/sensation intact/moves all extremities/no abnormal movements Psychiatric evaluation: No depressed mood/normal affect Skin: No rash on exposed skin area/no erythema Extremity: Normal pulse/no pitting edema/no clubbing or cyanosis Endocrine/lymphatic: No obvious lymphadenopathy /no lymphedema Diagnostics Laboratory Results Results Past 24 Hours Test 11/12/17 17:15 Range/Units White Blood Count 7.69 4.8-10.8 K/uL Red Blood Count 4.57 4.2-5.4 M/uL Hemoglobin 11.8 12.0-16.0 g/dL Hematocrit 38.0 37-47 % Mean Corpuscular Volume 83.2 80-100 fL Mean Corpuscular Hemoglobin 25.8 25-34 pg Mean Corpuscular Hemoglobin Concent 31.1 32-36 g/dl Platelet Count 259 130-400 K/uL Mean Platelet Volume 9.8 7.4-10.4 fL Neutrophils (%) (Auto) 70.8 % Lymphocytes (%) (Auto) 19.1 % Monocytes (%) (Auto) 8.5 % Eosinophils (%) (Auto) 0.9 % Basophils (%) (Auto) 0.4 % Neutrophils # (Auto) 5.45 1.4-6.5 K/uL Lymphocytes # (Auto) 1.47 1.2-3.4 K/uL Monocytes # (Auto) 0.65 0.11-0.59 K/uL Eosinophils # (Auto) 0.07 0-0.5 K/uL Basophils # (Auto) 0.03 0-0.2 K/uL RDW Standard Deviation 48.8 36.4-46.3 fL RDW Coefficient of Variation 16.0 11.5-14.5 % Immature Granulocyte % (Auto) 0.3 % Immature Granulocyte # (Auto) 0.02 0.00-0.02 K/uL Prothrombin Time 10.1 9.0-12.0 SECONDS Prothromb Time International Ratio 1.0 0.9-1.1 Activated Partial Thromboplast Time 21.9 21.0-31.0 SECONDS Partial Thromboplastin Ratio 0.8 Sodium Level 141 136-145 mmol/L Potassium Level 3.7 3.5-5.1 mmol/L Chloride Level 107 98-107 mmol/L Carbon Dioxide Level 24 21-32 mmol/L Anion Gap 10.0 3-11 mmol/L Blood Urea Nitrogen 19 7-18 mg/dl Creatinine 0.69 0.60-1.20 mg/dl Est Creatinine Clear Calc Drug Dose 63.4 ml/min Estimated GFR () 95.3 Estimated GFR (Non- 82.2 BUN/Creatinine Ratio 28.2 10-20 Random Glucose 98 70-99 mg/dl Calcium Level 8.5 8.5-10.1 mg/dl Diagnostic Radiology imaging in ED showed Acute impacted nondisplaced fracture of the distal radial metaphysis and Angulated mildly comminuted intertrochanteric fracture of the left femur. Impression Assessment and Plan 82 years old female with Hx of Gkxiwsy-Bruae-Uddnf disease, hypothyroidism and asthma. Status post mechanical fall with acute impacted nondisplaced fracture of the distal radial metaphysis and Angulated mildly comminuted intertrochanteric fracture of the left femur. Assessment Status post mechanical fall from ground level Likely osteoporosis due to multiple fractures from falling from ground level acute impacted nondisplaced fracture of the distal radial metaphysis Angulated mildly comminuted intertrochanteric fracture of the left femur. Hypothyroidism Asthma Hdxxtsa-Yamlb-Ytmjz disease Assessment: severe osteoarthritis that failed outpatient conservative measures. Patient presented to the hospital for an elective orthopedic procedure Plan No complaint of chest pain or shortness of breath despite of doing physical therapy 3 times a week, patient is medically clear for orthopedic procedure, as benefits outweighs risks Admit to medical floor Consult orthopedic physician Appears to be stable Continue outpatient medications Follow-up labs, ordered CBC and CMP Ensure adequate oral/parenteral intake Pain management Physical therapy initiation as per primary orthopedic team DVT prophylaxis as per the choice of primary orthopedic team, will start heparin subcu for now to be adjusted by orthopedic team Resuscitation Status VTE Prophylaxis Will order VTE Prophylaxis: Yes
[2017-11-12 20:20] VITALS: BP 144/81; PULSE 69; TEMP 36.6; O2SAT 98; BMI 31.9
[2017-11-12] MEDS: OXYCODONE HCL IR 5 MG TAB (IMMEDIATE RELEASE) PO PRN (21:36)
[2017-11-12] MEDS: LACTATED RINGER'S 1000ML 1,000 ML IV SCH (21:36)
[2017-11-12] MEDS: FLUTICASONE/SALMETEROL 100/50 (ADVAIR) 14 PUFF/1 INHALER INH SCH (21:37)
[2017-11-12] MEDS: HEPARIN SOD 5000 UNIT/0.5 ML CARP SQ SCH (21:37)
[2017-11-12] MEDS ORDERED: DOCUSATE SODIUM/SENNA 50/8.6MG TAB PO SCH (22:00)
[2017-11-12] MEDS ORDERED: ERGOCALCIFEROL 50,000 INTER.UNIT CAP PO SCH (22:00)
[2017-11-12 23:12] VITALS: BP 151/74; PULSE 81; TEMP 36.7; O2SAT 98
[2017-11-13] VITALS (9 sets, daily range): BP systolic 114–144; BP diastolic 66–74; PULSE 76–86; TEMP 36.6–36.9; O2SAT 95–98; Ht 157.5 cm; Wt 79.2 kg
[2017-11-13] MEDS: HEPARIN SOD 5000 UNIT/0.5 ML CARP SQ SCH (05:38)
[2017-11-13] MEDS: LEVOTHYROXINE 88 MCG TAB PO SCH (05:39)
[2017-11-13] MEDS: OXYCODONE HCL IR 5 MG TAB (IMMEDIATE RELEASE) PO PRN (05:41)
[2017-11-13] MEDS ORDERED: CEFAZOLIN IV 3,000 MG in DEXTROSE 5% 50ML 50 ML IV SCH (06:00)
[2017-11-13] MEDS ORDERED: CEFAZOLIN 1000MG IV PUSH 7.5 ML IV SCH (06:00)
[2017-11-13] MEDS ORDERED: CEFAZOLIN 2000MG IV PUSH 15 ML IV SCH (06:00)
[2017-11-13 06:04] LABS: BASO % 0.1 %; BASO ABS # 0.01 K/uL (0-0.2); EOS % 0.4 %; EOS ABS # 0.03 K/uL (0-0.5); HEMATOCRIT 31.7 % (37-47); HEMOGLOBIN 10.1 g/dL (12.0-16.0); IG# 0.01 K/uL (0.00-0.02); LYMPH % 20.6 %; LYMPH ABS # 1.71 K/uL (1.2-3.4); MEAN CELL VOLUME 82.8 fL (80-100); MEAN CORPUSCULAR HEMOGLOBIN 26.4 pg (25-34); MEAN CORPUSCULAR HGB CONC 31.9 g/dl (32-36); MEAN PLATELET VOLUME 9.6 fL (7.4-10.4); MONO % 9.3 %; MONO ABS # 0.77 K/uL (0.11-0.59); NEUT % 69.5 %; NEUT ABS # 5.78 K/uL (1.4-6.5); PLATELET COUNT 219 K/uL (130-400); RED CELL DISTRIBUTION WIDTH CV 16.2 % (11.5-14.5); WHITE BLOOD COUNT 8.31 K/uL (4.8-10.8)
[2017-11-13 06:39] LABS: ALBUMIN 2.9 gm/dl (3.4-5.0); CALCIUM 7.8 mg/dl (8.5-10.1); CREATININE 0.56 mg/dl (0.60-1.20); POTASSIUM 3.6 mmol/L (3.5-5.1)
[2017-11-13 06:42] LABS: TOTAL PROTEIN 6.1 gm/dl (6.4-8.2)
[2017-11-13] MEDS: FLUTICASONE/SALMETEROL 100/50 (ADVAIR) 14 PUFF/1 INHALER INH SCH ×2 (08:46→21:00)
[2017-11-13] MEDS: PANTOprazole SOD 40 MG TAB PO SCH (08:46)
--- NOTE | 2017-11-13 10:36 | Hospitalist Progress Note ---
Hospitalist Progress Note Date of Service Nov 13, 2017. Subjective Pt evaluation today including: conversation w/ patient, conversation w/ family , physical exam, chart review, lab review, review of studies, review of inpatient medication list Patient seen and evaluated. No acute events overnight. Reporting some increased pain in the L wrist compared to yesterday but controlled with pain medication. L knee more bothersome today but states it is worsened because of laying flat Currently on supplemental O2 but oxygenating adequately and can wean to maintain sats > 92%; doesn't utilize supplemental O2 at home Reports no SOB and hasn't had a significant asthma exacerbation since July 2017. Rarely utilizes inhaler Constitutional: No fever, No chills Respiratory: No cough, No shortness of breath Cardiovascular: No chest pain, No palpitations Abdomen: No pain, No nausea, No vomiting, No diarrhea, No constipation Musculoskeletal: + joint pain (L knee and L wrist), No calf pain Female : No dysuria Heme: No abnormal bleeding/bruising Skin: No rash Medications Current Inpatient Medications Medications (Trade) Dose Ordered Sig/Sania Route Start Time Stop Time Status Last Admin Dose Admin Salmeterol Xinafoate/ Fluticasone (Advair Diskus 100/50 Inh) 1 puff BID INH 11/12/17 22:00 12/12/17 21:59 11/13/17 08:46 1 PUFF Levothyroxine Sodium (Synthroid Tab) 88 mcg DAILYBB PO 11/13/17 06:00 12/13/17 05:59 11/13/17 05:39 88 MCG Pantoprazole Sodium (Protonix Tab) 40 mg QAM PO 11/13/17 09:00 12/13/17 08:59 Heparin Sodium (Porcine) (Heparin Sq 5000 Unit/0.5ml) 5,000 unit Q8 SQ 11/12/17 22:00 12/12/17 21:59 11/13/17 05:38 5,000 UNIT Acetaminophen (Tylenol Tab) 650 mg Q4H PRN PO 11/12/17 18:45 12/12/17 18:44 Al Hydrox/Mg Hydrox/Simethicone (Maalox Max Susp) 15 ml Q4H PRN PO 11/12/17 18:45 12/12/17 18:44 Magnesium Hydroxide (Milk Of Magnesia Susp) 30 ml Q6H PRN PO 11/12/17 18:45 12/12/17 18:44 Zolpidem Tartrate (Ambien Tab) 5 mg HSZ PRN PO 11/12/17 18:45 12/12/17 18:44 Ondansetron HCl (Zofran Inj) 4 mg Q6H PRN IV 11/12/17 18:45 12/12/17 18:44 Zolpidem Tartrate (Ambien Tab) 5 mg HSZ PRN PO 11/12/17 18:45 12/12/17 18:44 Lactated Ringer's 1,000 ml @ 50 mls/hr Q20H IV 11/12/17 21:30 12/12/17 21:29 11/12/17 21:36 50 MLS/HR Oxycodone HCl (Roxicodone Immediate Rel Tab) 5 mg Q4H PRN PO 11/12/17 18:45 11/26/17 18:44 11/13/17 05:41 5 MG Hydromorphone HCl (Dilaudid Inj) 0.5 mg Q20M PRN IV 11/12/17 18:45 11/26/17 18:44 Morphine Sulfate (MoRPHine SULFATE INJ) 2 mg Q2H PRN IV 11/12/17 18:45 11/26/17 18:44 Naloxone HCl (Narcan Inj) 0.1 mg PRN PRN IV 11/12/17 18:45 12/12/17 18:44 Senna/Docusate Sodium (Senokot S Tab) 2 tab HS PO 11/12/17 22:00 12/12/17 21:59 Polyethylene (Miralax Powder Packet) 17 gm DAILY PRN PO 11/12/17 18:45 12/12/17 18:44 Bisacodyl (Dulcolax Supp) 10 mg DAILY PRN ME 11/12/17 18:45 12/12/17 18:44 Sodium Biphosphate/ Sodium Phosphate (Fleet Enema) 132 ml PRN PRN ME 11/12/17 18:45 11/13/17 18:44 Ergocalciferol (Vitamin D Cap) 50,000 interunit [place]@0900 PO 11/12/17 22:00 12/12/17 21:59 11/12/17 21:38 50,000 INTERUNIT Cefazolin Sodium 7.5 ml @ 1.667 mls/ min PREOP IV 11/13/17 06:00 11/13/17 18:00 Objective Vital Signs Date Time Temp Pulse Resp B/P (MAP) Pulse Ox O2 Delivery O2 Flow Rate FiO2 11/13/17 08:34 Nasal Cannula 1.5 11/13/17 08:10 98 Nasal Cannula 2.0 11/13/17 07:30 36.9 86 14 132/72 (92) 98 Nasal Cannula 2.0 11/12/17 23:15 Nasal Cannula 1.5 11/12/17 23:12 36.7 81 16 151/74 (99) 98 Nasal Cannula 1.5 11/12/17 20:20 36.6 69 16 144/81 98 Nasal Cannula 2.0 11/12/17 19:54 36.6 89 18 156/90 98 11/12/17 18:10 89 18 156/90 98 Room Air 11/12/17 16:50 36.6 78 18 185/92 96 Room Air Physical Exam General Appearance: WD/WN, no apparent distress Eyes: sclerae normal ENT: hearing grossly normal Neck: supple, no JVD, trachea midline Respiratory/Chest: lungs clear, normal breath sounds, no respiratory distress, no accessory muscle use Cardiovascular: regular rate, rhythm, no gallop, no murmur Abdomen: normal bowel sounds, non tender, soft Extremities: no pedal edema, normal capillary refill (in L fingers and L toes) , + pertinent finding (b/l foot drop) Neurologic/Psychiatric: alert Skin: normal color, warm/dry Laboratory Results Last 24 Hours Test 11/12/17 17:15 11/12/17 20:25 11/13/17 05:50 White Blood Count 7.69 K/uL 8.31 K/uL Red Blood Count 4.57 M/uL 3.83 M/uL Hemoglobin 11.8 g/dL 10.1 g/dL Hematocrit 38.0 % 31.7 % Mean Corpuscular Volume 83.2 fL 82.8 fL Mean Corpuscular Hemoglobin 25.8 pg 26.4 pg Mean Corpuscular Hemoglobin Concent 31.1 g/dl 31.9 g/dl Platelet Count 259 K/uL 219 K/uL Mean Platelet Volume 9.8 fL 9.6 fL Neutrophils (%) (Auto) 70.8 % 69.5 % Lymphocytes (%) (Auto) 19.1 % 20.6 % Monocytes (%) (Auto) 8.5 % 9.3 % Eosinophils (%) (Auto) 0.9 % 0.4 % Basophils (%) (Auto) 0.4 % 0.1 % Neutrophils # (Auto) 5.45 K/uL 5.78 K/uL Lymphocytes # (Auto) 1.47 K/uL 1.71 K/uL Monocytes # (Auto) 0.65 K/uL 0.77 K/uL Eosinophils # (Auto) 0.07 K/uL 0.03 K/uL Basophils # (Auto) 0.03 K/uL 0.01 K/uL RDW Standard Deviation 48.8 fL 49.0 fL RDW Coefficient of Variation 16.0 % 16.2 % Immature Granulocyte % (Auto) 0.3 % 0.1 % Immature Granulocyte # (Auto) 0.02 K/uL 0.01 K/uL Prothrombin Time 10.1 SECONDS Prothromb Time International Ratio 1.0 Activated Partial Thromboplast Time 21.9 SECONDS Partial Thromboplastin Ratio 0.8 Sodium Level 141 mmol/L 139 mmol/L Potassium Level 3.7 mmol/L 3.6 mmol/L Chloride Level 107 mmol/L 105 mmol/L Carbon Dioxide Level 24 mmol/L 28 mmol/L Anion Gap 10.0 mmol/L 6.0 mmol/L Blood Urea Nitrogen 19 mg/dl 17 mg/dl Creatinine 0.69 mg/dl 0.56 mg/dl Est Creatinine Clear Calc Drug Dose 63.4 ml/min 78.1 ml/min Estimated GFR () 95.3 102.1 Estimated GFR (Non- 82.2 88.1 BUN/Creatinine Ratio 28.2 30.2 Random Glucose 98 mg/dl 105 mg/dl Calcium Level 8.5 mg/dl 7.8 mg/dl Urine Color YELLOW Urine Appearance CLEAR Urine pH 5.5 Urine Specific [place] 1.026 Urine Protein NEG Urine Glucose (UA) NEG Urine Ketones 2+ Urine Occult Blood TRACE Urine Nitrite NEG Urine Bilirubin NEG Urine Urobilinogen NEG Urine Leukocyte Esterase NEG Urine WBC (Auto) 1-5 /hpf Urine RBC (Auto) 5-10 /hpf Urine Hyaline Casts (Auto) 1-5 /lpf Urine Epithelial Cells (Auto) >30 /lpf Urine Bacteria (Auto) NEG Magnesium Level 2.1 mg/dl Total Bilirubin 0.4 mg/dl Aspartate Amino Transf (AST/SGOT) 19 U/L Alanine Aminotransferase (ALT/SGPT) 23 U/L Alkaline Phosphatase 65 U/L Total Protein 6.1 gm/dl Albumin 2.9 gm/dl Globulin 3.2 gm/dl Albumin/Globulin Ratio 0.9 Assessment and Plan 82 years old female with Hx of Orwbpye-Rexxz-Fipnb disease, hypothyroidism and asthma. Status post mechanical fall with acute impacted nondisplaced fracture of the distal radial metaphysis and Angulated mildly comminuted intertrochanteric fracture of the left femur. Mechanical Fall 2/2 Possible Osteoporosis: Impacted Non-Displaced Distal Radial Metaphysis Fx and Angulated Comminuted Intertrochanteric Fx of L Femur: H/O Mrosrkb-Qcjkp-Gukhw Disease with B/L Foot Drop - Vitamin D 50,000 IU weekly (Monday) - Pain management - with Roxicodone and IV Dilaudid for breakthrough - Recommend continued bowel regimen - Senna, Miralax, Dulcolax - Medically would be cleared for surgical intervention - Orthopedic Surgery following - appreciate recommendations and surgical intervention Hypothyroidism: - Synthroid 88 mcg daily Asthma without Exacerbation: - Advair 1 puff BID DVT Prophylaxis: Will hold Heparin now - will adjust pending surgical intervention Code Status: FULL RESUSCITATION Disposition: PT/OT evaluations Continued [facility] stay due to: ambulation difficulties Discharge planning: uncertain
--- NOTE | 2017-11-13 12:38 | CONSULTATION REPORT ---
DATE OF CONSULTATION: 11/13/2017 REASON FOR CONSULT: Left hip fracture, left wrist fracture. HISTORY OF PRESENT ILLNESS: The patient is an 82-year-old white female who states that while getting ready for baby shower, she was placing some curtains up and as she stepped backwards, she lost her balance and fell to the floor. She had immediate pain in her hip and groin and also in her left wrist. She was unable to ambulate and she was brought to the Emergency Room. She was seen by the staff. X-rays were taken and it was found that she had an intertrochanteric hip fracture as well as a small distal radius fracture. The left forearm was splinted and she was admitted by medicine service for further care. She denies any dizziness, lightheadedness, shortness of breath, chest pain prior to or after the fall. She denies hitting her head. She did not lose consciousness. PAST MEDICAL HISTORY: Asthma, bronchitis, Ljdvydv-Utzdp-Aidjx disease, a history of which she states a left rotator cuff tear this past summer, which has not been repaired. PAST SURGICAL HISTORY: Hysterectomy, tonsillectomy. FAMILY HISTORY: Diabetes mellitus, heart disease, cancer, hypertension, lung disease. SOCIAL HISTORY: The patient is a nonsmoker and is single. HOME MEDICATIONS: Advair Diskus 100/50 one puff inhaled b.i.d., Synthroid 88 mcg p.o. daily, omeprazole 20 mg p.o. daily. ALLERGIES: NKDA. REVIEW OF SYSTEMS: As per admitting history and physical. PHYSICAL EXAMINATION: CURRENT VITAL SIGNS: Showed pulse 36.9, respirations 16, pulse 76, BP 144/74, pulse ox 98 on 2 liters of O2. GENERAL: The patient is a well-developed, well-nourished white female and currently she is alert and oriented x3. She is in a mild amount of distress due to left hip pain. EXTREMITIES: On examination of her left lower extremity, it is shortened and rotated compared to the right. No attempts were made to move the left hip because of fracture. The left knee is slightly tender, which she states she has been dealing with for some time, but there is no noted fracture on x-ray. Left ankle and toes with decreased range of motion bilaterally due to her Wdtaszl-Iptps-Yjgoq disease. Sensation is intact. She has no problems with the right lower extremity as far as range of motion other than her ankle and foot. Upper extremities are essentially within normal limits with some decreased range of motion of the left shoulder due to a rotator cuff tear. She has no pain on palpation of her shoulders, elbows, and right wrist. She has a splint on her left forearm due to a distal radius fracture. Fingers have good capillary refill of less than 2 seconds. She denies any neck pain at this time and no thoracic or lumbar pain at this time. She has no gross motor or sensory loss other than decreased loss of motion of her feet and ankles due to above noted Njwkehi-Fxvvb-Dlmyg and also left hip fracture and decreased range of motion of the left wrist due to fracture as well of the distal radius. ASSESSMENT: 1. Left intertrochanteric hip fracture. 2. Left distal radius fracture. PLAN: The patient will be taken to the operating room today by Dr. Cai for a left trochanteric femoral nailing. It does not appear that she will need any surgery for her left distal radius fracture.
[2017-11-13] MEDS ORDERED: FENTANYL CITRATE INJ 50 MCG/1 ML 2 ML VIAL ONE ×2 (13:39→15:12)
[2017-11-13] MEDS ORDERED: BUPIVACAINE 0.5 % 5 MG/1 ML MPF 30ML VIAL ONE (14:19)
--- NOTE | 2017-11-13 14:30 | History & Physical Bridge Note ---
H&P Re-Evaluation Bridge Note: I have examined the patient, reviewed the History & Physical and in the interval since the performance of the History & Physical I have noted the following changes of clinical significance: No changes noted
[2017-11-13] MEDS ORDERED: CEFAZOLIN SOD 2000MG/15 ML IV PUSH IV ONE (14:38)
[2017-11-13] MEDS ORDERED: NURSING VERBAL MED ORDER ONE (14:45)
[2017-11-13] MEDS ORDERED: DEXAMETHASONE SOD INJ 4 MG/ML VIAL ONE ×2 (15:10→15:11)
[2017-11-13] MEDS ORDERED: LIDOCAINE HCL 2% 2 ML VIAL (20MG/ML) ONE (15:10)
[2017-11-13] MEDS ORDERED: GLYCOPYRROLATE INJ 0.2 MG/ML VIAL ONE ×2 (15:11→15:51)
[2017-11-13] MEDS ORDERED: ONDANSETRON INJ 2 MG/ML 2 ML VIAL ONE ×2 (15:11)
[2017-11-13] MEDS ORDERED: ROCURONIUM BROMIDE 10 MG/ML 5 ML VIAL IV ONE (15:11)
[2017-11-13] MEDS ORDERED: PHENYLEPHRINE 100MCG/ML 5ML SYR ONE (15:11)
[2017-11-13] MEDS ORDERED: EpHEDrine SULFATE 50MG/5ML SYR ONE (15:11)
[2017-11-13] MEDS ORDERED: NEOSTIGMINE METHYLSULFATE 5 MG/5 ML SYR ONE (15:11)
[2017-11-13] MEDS ORDERED: PROPOFOL IV EMULSION 10 MG/ML 20 ML VIAL IV ONE (15:11)
--- NOTE | 2017-11-13 16:12 | [facility] Post Operative Brief Note ---
Immediate Operative Summary Operative Date Nov 13, 2017. Pre-Operative Diagnosis 1. Left 3 part displaced intertrochanteric hip fracture 2. Left minimally displaced closed distal radius fracture Post-Operative Diagnosis 1. Left 3 part displaced intertrochanteric hip fracture 2. Left minimally displaced closed distal radius fracture Procedure(s) Performed 1. ORIF Left 3 part displaced intertrochanteric hip fracture with Synthes Trochanteric Fixation Nail 2. Closed treatment left minimally displaced distal radius fracture with volar splinting Surgeon Dr. Gigi Cai Acetone Recovery Worker Surgeon(s) Michi Bergeron PA-C Estimated Blood Loss 30ml Findings Consistent with Post-Op Diagnosis Specimens non per surgeon Dr. Gigi Cai Drains None Anesthesia Type General (With local) Complication(s) none Disposition Accompanied Pt To Recover: no Disposition: Recovery Room / PACU
--- NOTE | 2017-11-13 16:16 | DIAGNOSTIC IMAGING REPORT ---
L HIP OR FILMS CLINICAL HISTORY: Left trochanteric nail. COMPARISON STUDY: Left femur radiographs November 12, 2017. FLUOROSCOPY TIME: 1 minute and 7 seconds. FINDINGS: 4 fluoroscopic images demonstrate placement of a trochanteric nail. Hardware fixates the intertrochanteric fracture of the left femur. Fracture alignment has improved and is near anatomic. Hardware is intact. There are no unexpected radiopaque foreign bodies. IMPRESSION: Expected findings following proximal left femoral internal fixation. Electronically signed by: Gonzales Norwood M.D. 11/13/2017 4:15 PM Dictated Date/Time: 11/13/2017 4:13 PM
[2017-11-13] MEDS ORDERED: OXYCODONE HCL IR 5 MG TAB (IMMEDIATE RELEASE) PO PRN (16:30)
[2017-11-13] MEDS ORDERED: MAGNESIUM HYDROXIDE SUSP 30 ML UDC PO PRN (16:30)
[2017-11-13] MEDS ORDERED: BISACODYL 10 MG SUPP PR PRN (16:30)
[2017-11-13] MEDS ORDERED: ALUMINUM/MAGNESIUM/SIMETH (MAALOX MAX) 30 ML UDC PO PRN (16:30)
[2017-11-13] MEDS ORDERED: ERGOCALCIFEROL 50,000 INTER.UNIT CAP PO ONE (16:30)
[2017-11-13] MEDS ORDERED: ONDANSETRON INJ 2 MG/ML 2 ML VIAL IV PRN (16:30)
[2017-11-13] MEDS ORDERED: MoRPHine SULFATE 2 MG/ML CARP IV PRN (16:30)
[2017-11-13] MEDS ORDERED: ZOLPIDEM TARTRATE 5 MG TAB PO PRN (16:30)
[2017-11-13] MEDS ORDERED: SOD PHOSPHATE/SOD BIPHOSPHATE ENEMA 132 ML BTL PR PRN (16:30)
[2017-11-13] MEDS ORDERED: NO NSAIDS SCH (16:30)
--- NOTE | 2017-11-13 16:51 | OPERATIVE REPORT ---
DATE OF OPERATION: 11/12/2017 PREOPERATIVE DIAGNOSES: Left displaced 3-part intertrochanteric hip fracture and left minimally displaced distal radius fracture. POSTOPERATIVE DIAGNOSES: Same. PROCEDURES: 1. Open reduction and internal fixation of left 3-part displaced intertrochanteric hip fracture with a Synthes 10 mm x 130 degree titanium trochanteric fixation nail, 235 mm in length and 11 mm x 95 mm titanium helical blade and a 5 mm x 34 mm locking screw. 2. Closed treatment of left minimally displaced distal radius fracture with splinting. SURGEON: Gigi Cai DO WATCH AND CLOCK REPAIRER: Michi Bergeron PA-C, who was present for patient positioning, sterile prep and drape, management of retractors and instruments. He was present through the critical portions of the case including wound closure, application of sterile dressing and transport of the patient to recovery. ANESTHESIA: General LMA with local. SPECIMENS: None. DRAINS: None. COMPLICATIONS: None. BLOOD LOSS: 30 mL. PERTINENT HISTORY: This is an 82-year-old female who sustained a fall onto her left lower extremity and the left upper extremity. She was unable to ambulate and transferred to [facility]. Radiographs obtained and evaluation performed. The patient was admitted to the hospital for optimization and then eventual surgical fixation of her left hip fracture and Closed treatment of her left distal radius fracture. All potential risks, benefits, complications, alternatives, rehab, potential for incomplete relief of symptoms, need for further surgery, DVT, PE, , persistent pain, swelling, scarring, weakness, neurovascular injury, wound complications, hardware failure, nonunion, and malunion were discussed with the patient. The patient decided to proceed with the procedure as indicated. DESCRIPTION OF PROCEDURE: The patient was transferred to the operative suite. The proper site was identified. The consent was reviewed, the patient was then administered sedation and spinal anesthetic. Once appropriate, the patient then transferred to the fracture table where the lower extremity was placed in fracture table traction and the nonoperative leg was placed in the well leg linda. All bony prominences were properly padded and protected. The padded post was placed in the perineum and the patient was positioned appropriately. Next the left leg was placed on traction and reduction of the fracture was performed under fluoroscopic control. Next the operative hip was then sterilely prepped and draped in the usual fashion. Next a 10-blade scalpel incision was used to make an incision proximal to the greater trochanter. The incision was deepened through the subcutaneous tissue and fascia and the tip of the greater trochanter was then palpated followed by placement of a guide pin under fluoroscopic control driven into the greater trochanter down to the level of the lesser trochanter. This was confirmed in AP and lateral projections followed by placement of the proximal reamer over the cannulated guide pin. Next the reamer was then removed using the soft tissue protector, which was also removed. Next the ball tip guide rosina was placed into the proximal femur under fluoroscopic control confirmed with AP and lateral fluoroscope projections. Next the trochanteric nail was then passed over the guide rosina into the femur, the guide rosina was removed and then under fluoroscopic control appropriate level of the femoral nail was then placed in AP projections. Next the targeting device was then fixed to the driving handle and 10-blade scalpel incision was made in the lateral aspect of the thigh. Next the tissue protector and cannulated guide system was then passed into the soft tissue until it was securely fixed against a lateral aspect of the femoral cortex. This was also confirmed under C-arm. Next the guide pin for the spiral blade was driven into the lateral aspect of the femur confirming this with AP lateral projections until the guide pin was in the center of the femoral neck and head approximately 5 mm from the subcortical bone of the femur. Next the spiral blade was then measured and then the lateral cortex was then drilled with the cortex reamer followed by use of the triple reamer with the depth stop set at appropriate depth. In this case an 11 mm x 95 mm blade was then inserted over the cannulated guide rosina under fluoroscopic control. This was seated appropriately then traction was reduced from the limb and the fracture was then gently compressed and then locked proximally with the flexible screwdriver. Next the spiral blade was then disengaged from its insertion handle, insertion handle was then removed and the guide pin was removed from the femoral neck and head. Next the lateral targeting arm was used to insert the distal locking screw. First a 10-blade scalpel incision was made in the lateral aspect of the thigh, captured drill sleeves were then tamped gently to the lateral aspect of the femoral cortex then the locking screw hole was then drilled, measured and then an appropriate length screw was placed to lock the distal aspect of the nail. Next targeting sleeves were then removed. The insertion arm was then removed from the nail and final x-rays were obtained in AP and lateral projections. All incisions were then copiously irrigated with sterile normal saline. The proximal gluteus fascia was then closed using interrupted #1 Vicryl, the dermis was closed using buried interrupted 2-0 Vicryl sutures in all three incisions and the skin was then closed using skin gloria. A sterile compressive dressing consisting of Xeroform gauze, sterile 4 x 4's and Tegaderm was applied. To treat the Left upper extremity distal radius fracture, a well-padded splint was applied to the left upper extremity and covered with an Truong wrap. The patient was then awakened and taken to recovery in stable condition. I attest to the content of the Intraoperative Record and any orders documented therein. Any exceptions are noted below. MAKENNA
--- NOTE | 2017-11-13 16:59 | Anesthesiology Progress Note ---
Anesthesia Post Op Note Date & Time Nov 13, 2017 at 16:59 Vital Signs Pain Intensity: 0 Vital Signs Past 12 Hours Date Time Temp Pulse Resp B/P (MAP) Pulse Ox O2 Delivery O2 Flow Rate FiO2 11/13/17 16:55 36.4 11/13/17 16:53 71 20 96 11/13/17 16:53 71 20 11/13/17 16:51 123/70 11/13/17 16:48 73 13 11/13/17 16:48 78 13 95 11/13/17 16:47 128/67 11/13/17 16:43 73 13 95 11/13/17 16:43 73 13 11/13/17 16:42 75 16 96 11/13/17 16:42 75 16 11/13/17 16:41 130/72 11/13/17 16:37 74 16 97 11/13/17 16:37 74 16 11/13/17 16:36 77 16 11/13/17 16:36 76 16 135/62 96 11/13/17 16:32 143/59 11/13/17 16:31 87 17 98 11/13/17 16:31 86 17 11/13/17 16:30 79 15 11/13/17 16:30 79 15 97 11/13/17 16:26 134/61 11/13/17 16:25 88 14 97 11/13/17 16:25 81 14 11/13/17 16:21 148/71 11/13/17 16:20 36.3 96 17 148/71 95 Oxymask 10 11/13/17 16:20 94 15 93 11/13/17 16:20 98 15 11/13/17 12:02 36.9 76 16 144/74 (97) 98 Nasal Cannula 2.0 11/13/17 08:34 Nasal Cannula 1.5 11/13/17 08:10 98 Nasal Cannula 2.0 11/13/17 07:30 36.9 86 14 132/72 (92) 98 Nasal Cannula 2.0 Notes Mental Status: alert / awake / arousable, participated in evaluation Pt Amnestic to Procedure: Yes Nausea / Vomiting: adequately controlled Pain: adequately controlled Airway Patency, RR, SpO2: stable & adequate BP & HR: stable & adequate Hydration State: stable & adequate Anesthetic Complications: no major complications apparent
[2017-11-13] MEDS: LACTATED RINGER'S 1000ML 1,000 ML IV SCH (17:38)
[2017-11-13] MEDS: ACETAMINOPHEN 500 MG TAB PO SCH ×2 (17:38→23:51)
[2017-11-13] MEDS: SENNA 8.6 MG TAB PO SCH (21:17)
[2017-11-13] MEDS: DOCUSATE SODIUM 100 MG CAP PO SCH (21:17)
[2017-11-14] VITALS (7 sets, daily range): BP systolic 111–146; BP diastolic 65–73; PULSE 76–91; TEMP 36.6–37.3; O2SAT 91–99
[2017-11-14] MEDS: LEVOTHYROXINE 88 MCG TAB PO SCH (05:45)
[2017-11-14 06:53] LABS: CREATININE 0.58 mg/dl (0.60-1.20); POTASSIUM 3.9 mmol/L (3.5-5.1)
--- NOTE | 2017-11-14 08:07 | Orthopedic Progress Note ---
Orthopedic Progress Note Date of Service Nov 14, 2017. Subjective Post OP Day: 1 Reports: feeling well, pain controlled w PO medications, Denies: complaints, chest pain, SOB, nausea / vomiting, light headedness, calf pain Objective calves soft nontender, N/V intact, capillary refill less than 2 sec., dressing C /D/I, A&O x3, toes mobile Left hip and thigh are soft. No significant ecchymosis at this time. Date Time Temp Pulse Resp B/P (MAP) Pulse Ox O2 Delivery O2 Flow Rate FiO2 11/14/17 07:39 36.6 82 16 146/73 (97) 99 Nasal Cannula 2.0 11/14/17 03:20 36.7 76 16 114/65 (81) 99 Nasal Cannula 2.0 11/13/17 23:50 Nasal Cannula 2.0 11/13/17 23:40 36.7 79 16 114/66 (82) 98 Nasal Cannula 2.0 11/13/17 20:10 36.8 82 16 128/74 (92) 98 Nasal Cannula 2.0 11/13/17 19:35 Room Air 11/13/17 19:10 36.6 80 18 126/70 (88) 97 Nasal Cannula 2.0 11/13/17 18:08 36.9 80 17 130/67 (88) 97 Nasal Cannula 2.0 11/13/17 17:43 83 16 136/73 (94) 97 Nasal Cannula 2.0 11/13/17 17:10 95 Nasal Cannula 2.0 11/13/17 17:10 95 Nasal Cannula 2.0 11/13/17 17:10 36.6 82 16 134/67 (89) 95 Nasal Cannula 2.0 11/13/17 16:59 71 13 96 11/13/17 16:59 71 13 11/13/17 16:56 135/72 11/13/17 16:55 36.4 11/13/17 16:54 73 16 94 11/13/17 16:54 73 16 11/13/17 16:53 71 20 96 11/13/17 16:53 71 20 11/13/17 16:51 123/70 11/13/17 16:48 73 13 11/13/17 16:48 78 13 95 11/13/17 16:47 128/67 11/13/17 16:43 73 13 95 11/13/17 16:43 73 13 11/13/17 16:42 75 16 96 11/13/17 16:42 75 16 11/13/17 16:41 130/72 11/13/17 16:37 74 16 97 11/13/17 16:37 74 16 11/13/17 16:36 77 16 11/13/17 16:36 76 16 135/62 96 11/13/17 16:32 143/59 11/13/17 16:31 87 17 98 11/13/17 16:31 86 17 11/13/17 16:30 79 15 11/13/17 16:30 79 15 97 11/13/17 16:26 134/61 11/13/17 16:25 88 14 97 11/13/17 16:25 81 14 11/13/17 16:21 148/71 11/13/17 16:20 36.3 96 17 148/71 95 Oxymask 10 11/13/17 16:20 94 15 93 11/13/17 16:20 98 15 11/13/17 12:02 36.9 76 16 144/74 (97) 98 Nasal Cannula 2.0 11/13/17 08:34 Nasal Cannula 1.5 11/13/17 08:10 98 Nasal Cannula 2.0 Assessment & Plan Assessment: POD #1 s/p 1. Open reduction and internal fixation of left 3-part displaced intertrochanteric hip fracture with a Synthes 10 mm x 130 degree titanium trochanteric fixation nail, 235 mm in length and 11 mm x 95 mm titanium helical blade and a 5 mm x 34 mm locking screw. 2. Closed treatment of left minimally displaced distal radius fracture with splinting Plan: Toe touch WB LLE at all times--platform walker for LUE. DVT prophylaxis--ASA 81 mg BID and YAZMIN stockings. PT/OT D/C planning--SNF vs rehab. Inhouse Planning Pain Management: Morphine, Oxy IR DVT Prophylaxis: TEDs, SCDs, ASA Discharge Planning Discharge Planning: uncertain
[2017-11-14] MEDS: ASPIRIN 81 MG ECTAB PO SCH ×3 (08:59→20:27)
[2017-11-14] MEDS: ACETAMINOPHEN 500 MG TAB PO SCH ×3 (08:59→23:46)
[2017-11-14] MEDS: DOCUSATE SODIUM 100 MG CAP PO SCH ×2 (09:00→20:27)
[2017-11-14] MEDS: FLUTICASONE/SALMETEROL 100/50 (ADVAIR) 14 PUFF/1 INHALER INH SCH ×2 (09:00→20:28)
[2017-11-14] MEDS: PANTOprazole SOD 40 MG TAB PO SCH (09:01)
[2017-11-14] MEDS: MULTIVITAMIN TAB PO SCH (09:01)
[2017-11-14] MEDS: LACTATED RINGER'S 1000ML 1,000 ML IV SCH (12:35)
--- NOTE | 2017-11-14 13:04 | Hospitalist Progress Note ---
Hospitalist Progress Note Date of Service Nov 14, 2017. Subjective Pt evaluation today including: conversation w/ patient, conversation w/ family , physical exam, lab review, review of inpatient medication list Patient seen and evaluated. S/P L hip nailing. Reporting good control with pain. Ambulating a little last night and feels she didn't do too well. Awaiting PT/OT evaluations. States she has her foot braces she utilizes due to her foot drop. Tolerating diet without issue. Constitutional: No fever, No chills Respiratory: No cough, No shortness of breath Cardiovascular: No chest pain, No palpitations Abdomen: No pain, No nausea, No vomiting, No diarrhea, No constipation Musculoskeletal: + joint pain (L hip and L wrist - improving) Female : No dysuria Heme: No abnormal bleeding/bruising Medications Current Inpatient Medications Medications (Trade) Dose Ordered Sig/Sania Route Start Time Stop Time Status Last Admin Dose Admin Salmeterol Xinafoate/ Fluticasone (Advair Diskus 100/50 Inh) 1 puff BID INH 11/12/17 22:00 12/12/17 21:59 11/14/17 09:00 1 PUFF Levothyroxine Sodium (Synthroid Tab) 88 mcg DAILYBB PO 11/13/17 06:00 12/13/17 05:59 11/14/17 05:45 88 MCG Pantoprazole Sodium (Protonix Tab) 40 mg QAM PO 11/13/17 09:00 12/13/17 08:59 11/14/17 09:01 40 MG Acetaminophen (Tylenol Tab) 650 mg Q4H PRN PO 11/12/17 18:45 12/12/17 18:44 Future Hold Ondansetron HCl (Zofran Inj) 4 mg Q6H PRN IV 11/12/17 18:45 12/12/17 18:44 Lactated Ringer's 1,000 ml @ 50 mls/hr Q20H IV 11/12/17 21:30 12/12/17 21:29 11/14/17 12:35 50 MLS/HR Naloxone HCl (Narcan Inj) 0.1 mg PRN PRN IV 11/12/17 18:45 12/12/17 18:44 Polyethylene (Miralax Powder Packet) 17 gm DAILY PRN PO 11/12/17 18:45 12/12/17 18:44 Ergocalciferol (Vitamin D Cap) 50,000 interunit [place]@0900 PO 11/12/17 22:00 12/12/17 21:59 11/12/17 21:38 50,000 INTERUNIT Miscellaneous Medication (No Nsaids) 1 ea UD N/A 11/13/17 16:30 12/13/17 16:29 Oxycodone HCl (Roxicodone Immediate Rel Tab) 1-2 TABS FOR PAIN 1 TABLET ... Q4H PRN PO 11/13/17 16:30 11/27/17 16:29 Morphine Sulfate (MoRPHine SULFATE INJ) 2 mg Q1HWA PRN IV 11/13/17 16:30 11/27/17 16:29 Acetaminophen (Tylenol Tab) 1,000 mg Q8H PO 11/13/17 16:00 12/13/17 15:59 11/14/17 08:59 1,000 MG Magnesium Hydroxide (Milk Of Magnesia Susp) 30 ml Q6H PRN PO 11/13/17 16:30 12/13/17 16:29 Bisacodyl (Dulcolax Supp) 10 mg DAILY PRN ID 11/13/17 16:30 12/13/17 16:29 Sodium Biphosphate/ Sodium Phosphate (Fleet Enema) 132 ml DAILY PRN ID 11/13/17 16:30 12/13/17 16:29 Senna (Senokot Tab) 17.2 mg HS PO 11/13/17 21:00 12/13/17 20:59 11/13/17 21:17 17.2 MG Docusate Sodium (coLACE CAP) 100 mg BID PO 11/13/17 21:00 12/13/17 20:59 11/14/17 09:00 100 MG Diphenhydramine HCl (Benadryl Cap) 25 mg Q8H PRN PO 11/13/17 16:30 12/13/17 16:29 Al Hydrox/Mg Hydrox/Simethicone (Maalox Max Susp) 15 ml Q4H PRN PO 11/13/17 16:30 12/13/17 16:29 Zolpidem Tartrate (Ambien Tab) 5 mg HSZ PRN PO 11/13/17 16:30 12/13/17 16:29 Multivitamins (Multivitamin Tab) 1 tab QAM PO 11/14/17 09:00 12/14/17 08:59 11/14/17 09:01 1 TAB Ondansetron HCl (Zofran Inj) 4 mg Q6H PRN IV 11/13/17 16:30 12/13/17 16:29 Aspirin (Ecotrin Tab) 81 mg Q12 PO 11/14/17 08:00 12/14/17 07:59 11/14/17 09:02 81 MG Objective Vital Signs Date Time Temp Pulse Resp B/P (MAP) Pulse Ox O2 Delivery O2 Flow Rate FiO2 11/14/17 12:27 90 18 126/71 (89) 91 Room Air 11/14/17 10:07 Room Air 11/14/17 07:39 36.6 82 16 146/73 (97) 99 Nasal Cannula 2.0 11/14/17 03:20 36.7 76 16 114/65 (81) 99 Nasal Cannula 2.0 11/13/17 23:50 Nasal Cannula 2.0 11/13/17 23:40 36.7 79 16 114/66 (82) 98 Nasal Cannula 2.0 11/13/17 20:10 36.8 82 16 128/74 (92) 98 Nasal Cannula 2.0 11/13/17 19:35 Room Air 11/13/17 19:10 36.6 80 18 126/70 (88) 97 Nasal Cannula 2.0 11/13/17 18:08 36.9 80 17 130/67 (88) 97 Nasal Cannula 2.0 11/13/17 17:43 83 16 136/73 (94) 97 Nasal Cannula 2.0 11/13/17 17:10 95 Nasal Cannula 2.0 11/13/17 17:10 95 Nasal Cannula 2.0 11/13/17 17:10 36.6 82 16 134/67 (89) 95 Nasal Cannula 2.0 11/13/17 16:59 71 13 96 11/13/17 16:59 71 13 11/13/17 16:56 135/72 11/13/17 16:55 36.4 11/13/17 16:54 73 16 94 11/13/17 16:54 73 16 11/13/17 16:53 71 20 96 11/13/17 16:53 71 20 11/13/17 16:51 123/70 11/13/17 16:48 73 13 11/13/17 16:48 78 13 95 11/13/17 16:47 128/67 11/13/17 16:43 73 13 95 11/13/17 16:43 73 13 11/13/17 16:42 75 16 96 11/13/17 16:42 75 16 11/13/17 16:41 130/72 11/13/17 16:37 74 16 97 11/13/17 16:37 74 16 11/13/17 16:36 77 16 11/13/17 16:36 76 16 135/62 96 11/13/17 16:32 143/59 11/13/17 16:31 87 17 98 11/13/17 16:31 86 17 11/13/17 16:30 79 15 11/13/17 16:30 79 15 97 11/13/17 16:26 134/61 11/13/17 16:25 88 14 97 11/13/17 16:25 81 14 11/13/17 16:21 148/71 11/13/17 16:20 36.3 96 17 148/71 95 Oxymask 10 11/13/17 16:20 94 15 93 11/13/17 16:20 98 15 Physical Exam General Appearance: WD/WN, no apparent distress Eyes: sclerae normal ENT: hearing grossly normal Neck: supple, no JVD, trachea midline Respiratory/Chest: lungs clear, normal breath sounds, no respiratory distress, no accessory muscle use Cardiovascular: regular rate, rhythm, no gallop, no murmur Abdomen: normal bowel sounds, non tender, soft Extremities: no pedal edema, + pertinent finding (hip dressing C/D/I; wrist with splint; good cap refill in fingers and toes; b/l foot drop) Neurologic/Psychiatric: alert Skin: normal color, warm/dry Laboratory Results Last 24 Hours Test 11/14/17 05:53 Sodium Level 140 mmol/L Potassium Level 3.9 mmol/L Chloride Level 105 mmol/L Carbon Dioxide Level 28 mmol/L Anion Gap 7.0 mmol/L Blood Urea Nitrogen 13 mg/dl Creatinine 0.58 mg/dl Est Creatinine Clear Calc Drug Dose 75.4 ml/min Estimated GFR () 100.9 Estimated GFR (Non- 87.1 BUN/Creatinine Ratio 23.4 Random Glucose 111 mg/dl Calcium Level 8.0 mg/dl Assessment and Plan 82 years old female with Hx of Ripvwdm-Tjhpg-Unint disease, hypothyroidism and asthma. Status post mechanical fall with acute impacted nondisplaced fracture of the distal radial metaphysis and Angulated mildly comminuted intertrochanteric fracture of the left femur. Mechanical Fall 2/2 Possible Osteoporosis: Impacted Non-Displaced Distal Radial Metaphysis Fx and Angulated Comminuted Intertrochanteric Fx of L Femur: H/O Xmwppmc-Slwia-Fzavn Disease with B/L Foot Drop - S/P ORIF with Trochanteric Nail and Volar Splint for L Wrist - Vitamin D 50,000 IU weekly (Monday) - Pain management - with Roxicodone and IV Dilaudid for breakthrough - Recommend continued bowel regimen - Senna, Miralax, Dulcolax - Orthopedic Surgery following - appreciate recommendations Hypothyroidism: - Synthroid 88 mcg daily Asthma without Exacerbation: - Advair 1 puff BID Code Status: FULL RESUSCITATION Disposition: PT/OT evaluations - likely will need rehab Continued [facility] stay due to: ambulation difficulties Discharge planning: snf facility
[2017-11-14] MEDS: SENNA 8.6 MG TAB PO SCH (20:28)
[2017-11-15] MEDS: LEVOTHYROXINE 88 MCG TAB PO SCH (05:30)
[2017-11-15 06:12] LABS: HEMATOCRIT 25.8 % (37-47); MEAN CELL VOLUME 84.3 fL (80-100); MEAN CORPUSCULAR HEMOGLOBIN 26.1 pg (25-34); MEAN PLATELET VOLUME 9.2 fL (7.4-10.4); PLATELET COUNT 179 K/uL (130-400); RED CELL DISTRIBUTION WIDTH CV 16.1 % (11.5-14.5); RED CELL DISTRIBUTION WIDTH SD 49.7 fL (36.4-46.3); WHITE BLOOD COUNT 7.31 K/uL (4.8-10.8)
[2017-11-15 06:39] LABS: CALCIUM 7.8 mg/dl (8.5-10.1); CREATININE 0.59 mg/dl (0.60-1.20)
[2017-11-15 07:18] VITALS: BP 115/65; PULSE 81; TEMP 36.8; O2SAT 92
--- NOTE | 2017-11-15 07:34 | Orthopedic Progress Note ---
Orthopedic Progress Note Date of Service Nov 15, 2017. Subjective Post OP Day: 2 Reports: feeling well, Denies: chest pain, SOB, nausea / vomiting, light headedness, calf pain Additional Notes: DOING WELL. STATES WRIST IS GETTING STIFF.HIP DOING WELL. Objective calves soft nontender, N/V intact, hip located, capillary refill less than 2 sec., dressing C/D/I, A&O x3, toes mobile Date Time Temp Pulse Resp B/P (MAP) Pulse Ox O2 Delivery O2 Flow Rate FiO2 11/15/17 07:18 36.8 81 16 115/65 (82) 92 Room Air 11/14/17 23:25 36.9 91 16 111/66 (81) 91 Room Air 11/14/17 20:00 Room Air 11/14/17 18:41 37.3 11/14/17 15:48 36.8 88 16 124/66 (85) 95 Room Air 11/14/17 13:15 36.8 11/14/17 12:27 90 18 126/71 (89) 91 Room Air 11/14/17 10:07 Room Air 11/14/17 07:39 36.6 82 16 146/73 (97) 99 Nasal Cannula 2.0 Laboratory Results 24 Hours: Test 11/15/17 05:55 Hematocrit 25.8 % Hemoglobin 8.0 g/dL Assessment & Plan Assessment: POD #2 s/p 1. Open reduction and internal fixation of left 3-part displaced intertrochanteric hip fracture with a Synthes 10 mm x 130 degree titanium trochanteric fixation nail, 235 mm in length and 11 mm x 95 mm titanium helical blade and a 5 mm x 34 mm locking screw. 2. Closed treatment of left minimally displaced distal radius fracture with splinting Plan: Toe touch WB LLE at all times--platform walker for LUE. DVT prophylaxis--ASA 81 mg BID and YAZMIN stockings. PT/OT D/C planning--SNF vs rehab. - PATIENT PREFERS [facility]. WILL NEED REFERRAL. STABLE ORTHOPEDICALLY FOR TRANSFER ANYTIME. MEDICAL MANAGEMENT Inhouse Planning Pain Management: Morphine, Oxy IR DVT Prophylaxis: TEDs, SCDs, ASA Discharge Planning Discharge Planning: uncertain
--- NOTE | 2017-11-15 07:36 | Discharge Instructions ---
Discharge Instructions Date of Service Nov 15, 2017. Admission Reason for Admission: Closed Left Hip Fracture Discharge Discharge Diagnosis / Problem: SP LEFT TROCH NAIL Discharge Goals Goal(s): Decrease discomfort, Improve function, Increase independence Activity Recommendations Activity Limitations: per Instructions/Follow-up section . Instructions / Follow-Up Instructions / Follow-Up [facility] DISCHARGE INSTRUCTIONS: HIP FRACTURE SELF CARE INSTRUCTIONS: A. You are to ambulate with a walker or crutches for approximately 6 weeks. B. You are TOE TOUCH WEIGHT BEARING on your operative lower extremity for at least 6 weeks. C. Wear low heeled shoes with non-slip soles D. Be sure that your floors are free of things that could trip you throw rugs, electrical cords, and small objects. Avoid wet and waxed floors, especially with crutches/walker/cane. E. Try to walk several times a day with rest periods between. F. You may shower 48 hours after surgery and get the incision area wet, but DO NOT soak or submerge incision area in water. (No baths, swimming pools, hot tubs ) G. Standard gloria/no adhesive- Please keep incision clean and dry. You may shower. Gloria should be removed in 10-14 days at the office. This appointment is likely already scheduled for you. Please call if any increased redness, drainage, or swelling. H. Do NOT apply soap or any ointment/lotions directly over incision. I. You may use ice as needed to operative site. SPECIAL CARE INSTRUCTIONS: VERY IMPORTANT TO READ AND REVIEW A. You may be at risk for phlebitis or blood clots. a. Wear surgical stockings (YAZMIN hose) for 2 weeks after surgery to improve circulation and reduce swelling. b. Take ASPIRIN 81 mg twice daily for 4 weeks or as directed. This is your blood thinner. c. If you are on Coumadin- you will have daily/weekly blood work to monitor your levels. This will be done by either your family physician/ shrub grower (if you are on Coumadin chronically) versus your orthopedic surgeon. Expect a phone call the day of or the day after your blood work is drawn to adjust your dose accordingly. B. There are a few signs you need to watch for after you are home. Call [facility] [place] at [phone] if you experience any of the following: a. If you have a temperature of 101 degrees or higher. b. Sudden increase in pain in your hip not relieved by rest or pain medication. c. Any fluid or drainage from the incision; redness of the incision. d. Shortness of breath or chest pain. B. Please call [facility] at [phone] if you have any questions or concerns about your operation or recovery. C. Call your physician if: a. Temperature is greater than 101 degrees (F). b. Pain is not relieved by prescribed pain medications. c. Increase drainage or redness from incision. d. Unanswered questions or concerns. D. Pain Medication: a. You will be prescribed pain medication upon discharge that should last till your first post-operative appointment. b. If you experience nausea and/or skin rash, discontinue this medication and contact our office for an alternative medication. c. Caution- narcotic pain medication can cause constipation. FOLLOW UP VISIT: Please call [facility] at [phone] to schedule a follow up appointment 10-14 days from the date of your surgery date. DR. MATHIS Current Hospital Diet Patient's current hospital diet: Regular Diet Discharge Diet Recommended Diet: Regular Diet Procedures Procedures Performed: 1. ORIF Left 3 part displaced intertrochanteric hip fracture with Synthes Trochanteric Fixation Nail 2. Closed treatment left minimally displaced distal radius fracture with volar splinting Pending Studies Studies pending at discharge: no Medical Emergencies . Who to Call and When: Medical Emergencies: If at any time you feel your situation is an emergency, please call 911 immediately. . Non-Emergent Contact Non-Emergency issues call your: Surgeon . "Provider Documentation" section prepared by Herminia Moctezuma. . [place] Drug Monitoring Program Search Results: patient reviewed within database, no issues identified
[2017-11-15] MEDS: ASPIRIN 81 MG ECTAB PO SCH ×3 (08:36→21:00)
[2017-11-15] MEDS: FLUTICASONE/SALMETEROL 100/50 (ADVAIR) 14 PUFF/1 INHALER INH SCH ×3 (08:36→21:00)
[2017-11-15] MEDS: MULTIVITAMIN TAB PO SCH (08:36)
[2017-11-15] MEDS: DOCUSATE SODIUM 100 MG CAP PO SCH ×3 (08:36→21:00)
[2017-11-15] MEDS: PANTOprazole SOD 40 MG TAB PO SCH (08:36)
[2017-11-15] MEDS: ACETAMINOPHEN 500 MG TAB PO SCH ×2 (08:37→15:36)
[2017-11-15 12:12] LABS: HEMATOCRIT 26.8 % (37-47); HEMOGLOBIN 8.5 g/dL (12.0-16.0)
--- NOTE | 2017-11-15 13:39 | Hospitalist Progress Note ---
Hospitalist Progress Note Date of Service Nov 15, 2017. Subjective Pt evaluation today including: conversation w/ patient, physical exam, lab review, review of studies, review of inpatient medication list Patient seen and evaluated. Feeling a lot better today. Feels better sitting in chair. Hgb dropped to 8 but on repeat is 8.5 and asymptomatic. No indication for transfusion. Tolerating diet without issue. Pain controlled with Tylenol only. Awaiting authorization for rehab vs SNF Constitutional: No fever, No chills Respiratory: No cough, No shortness of breath Cardiovascular: No chest pain Abdomen: No pain, No vomiting, No diarrhea, No constipation Musculoskeletal: + joint pain (mild L hip/wrist pain - controlled with Tylenol) Female : No dysuria Heme: No abnormal bleeding/bruising Skin: No rash Medications Current Inpatient Medications Medications (Trade) Dose Ordered Sig/Sania Route Start Time Stop Time Status Last Admin Dose Admin Salmeterol Xinafoate/ Fluticasone (Advair Diskus 100/50 Inh) 1 puff BID INH 11/12/17 22:00 12/12/17 21:59 11/15/17 08:36 1 PUFF Levothyroxine Sodium (Synthroid Tab) 88 mcg DAILYBB PO 11/13/17 06:00 12/13/17 05:59 11/15/17 05:30 88 MCG Pantoprazole Sodium (Protonix Tab) 40 mg QAM PO 11/13/17 09:00 12/13/17 08:59 11/15/17 08:36 40 MG Acetaminophen (Tylenol Tab) 650 mg Q4H PRN PO 11/12/17 18:45 12/12/17 18:44 Future Hold Ondansetron HCl (Zofran Inj) 4 mg Q6H PRN IV 11/12/17 18:45 12/12/17 18:44 Naloxone HCl (Narcan Inj) 0.1 mg PRN PRN IV 11/12/17 18:45 12/12/17 18:44 Polyethylene (Miralax Powder Packet) 17 gm DAILY PRN PO 11/12/17 18:45 12/12/17 18:44 Ergocalciferol (Vitamin D Cap) 50,000 interunit [place]@0900 PO 11/12/17 22:00 12/12/17 21:59 11/12/17 21:38 50,000 INTERUNIT Miscellaneous Medication (No Nsaids) 1 ea UD N/A 11/13/17 16:30 12/13/17 16:29 Oxycodone HCl (Roxicodone Immediate Rel Tab) 1-2 TABS FOR PAIN 1 TABLET ... Q4H PRN PO 11/13/17 16:30 11/27/17 16:29 Morphine Sulfate (MoRPHine SULFATE INJ) 2 mg Q1HWA PRN IV 11/13/17 16:30 11/27/17 16:29 Acetaminophen (Tylenol Tab) 1,000 mg Q8H PO 11/13/17 16:00 12/13/17 15:59 11/15/17 08:37 1,000 MG Magnesium Hydroxide (Milk Of Magnesia Susp) 30 ml Q6H PRN PO 11/13/17 16:30 12/13/17 16:29 Bisacodyl (Dulcolax Supp) 10 mg DAILY PRN TN 11/13/17 16:30 12/13/17 16:29 Sodium Biphosphate/ Sodium Phosphate (Fleet Enema) 132 ml DAILY PRN TN 11/13/17 16:30 12/13/17 16:29 Senna (Senokot Tab) 17.2 mg HS PO 11/13/17 21:00 12/13/17 20:59 11/14/17 20:28 17.2 MG Docusate Sodium (coLACE CAP) 100 mg BID PO 11/13/17 21:00 12/13/17 20:59 11/15/17 08:36 100 MG Diphenhydramine HCl (Benadryl Cap) 25 mg Q8H PRN PO 11/13/17 16:30 12/13/17 16:29 Al Hydrox/Mg Hydrox/Simethicone (Maalox Max Susp) 15 ml Q4H PRN PO 11/13/17 16:30 12/13/17 16:29 Zolpidem Tartrate (Ambien Tab) 5 mg HSZ PRN PO 11/13/17 16:30 12/13/17 16:29 Multivitamins (Multivitamin Tab) 1 tab QAM PO 11/14/17 09:00 12/14/17 08:59 11/15/17 08:36 1 TAB Ondansetron HCl (Zofran Inj) 4 mg Q6H PRN IV 11/13/17 16:30 12/13/17 16:29 Aspirin (Ecotrin Tab) 81 mg Q12 PO 11/14/17 08:00 12/14/17 07:59 11/15/17 08:36 81 MG Objective Vital Signs Date Time Temp Pulse Resp B/P (MAP) Pulse Ox O2 Delivery O2 Flow Rate FiO2 11/15/17 07:50 Room Air 11/15/17 07:18 36.8 81 16 115/65 (82) 92 Room Air 11/14/17 23:25 36.9 91 16 111/66 (81) 91 Room Air 11/14/17 20:00 Room Air 11/14/17 18:41 37.3 11/14/17 15:48 36.8 88 16 124/66 (85) 95 Room Air Physical Exam General Appearance: WD/WN, no apparent distress Eyes: sclerae normal ENT: hearing grossly normal Neck: supple, no JVD, trachea midline Respiratory/Chest: lungs clear, normal breath sounds, no respiratory distress, no accessory muscle use Cardiovascular: regular rate, rhythm, no gallop, no murmur Abdomen: normal bowel sounds, non tender, soft Extremities: no calf tenderness, + pertinent finding (b/l foot drop) Neurologic/Psychiatric: alert Skin: normal color, warm/dry Laboratory Results Last 24 Hours Test 11/15/17 05:55 11/15/17 12:02 White Blood Count 7.31 K/uL Red Blood Count 3.06 M/uL Hemoglobin 8.0 g/dL 8.5 g/dL Hematocrit 25.8 % 26.8 % Mean Corpuscular Volume 84.3 fL Mean Corpuscular Hemoglobin 26.1 pg Mean Corpuscular Hemoglobin Concent 31.0 g/dl RDW Standard Deviation 49.7 fL RDW Coefficient of Variation 16.1 % Platelet Count 179 K/uL Mean Platelet Volume 9.2 fL Sodium Level 139 mmol/L Potassium Level 4.0 mmol/L Chloride Level 106 mmol/L Carbon Dioxide Level 27 mmol/L Anion Gap 6.0 mmol/L Blood Urea Nitrogen 15 mg/dl Creatinine 0.59 mg/dl Est Creatinine Clear Calc Drug Dose 74.1 ml/min Estimated GFR () 100.3 Estimated GFR (Non- 86.6 BUN/Creatinine Ratio 26.0 Random Glucose 97 mg/dl Calcium Level 7.8 mg/dl Assessment and Plan 82 years old female with Hx of Vtdoqdz-Kzmwq-Ksoyj disease, hypothyroidism and asthma. Status post mechanical fall with acute impacted nondisplaced fracture of the distal radial metaphysis and Angulated mildly comminuted intertrochanteric fracture of the left femur. Mechanical Fall 2/2 Possible Osteoporosis: Impacted Non-Displaced Distal Radial Metaphysis Fx and Angulated Comminuted Intertrochanteric Fx of L Femur: H/O Wwtdrad-Psqif-Qfhct Disease with B/L Foot Drop - S/P ORIF with Trochanteric Nail and Volar Splint for L Wrist - Vitamin D 50,000 IU weekly (Monday) - Pain management - Only reporting needing Tylenol - Recommend continued bowel regimen - Senna, Miralax, Dulcolax - Orthopedic Surgery following - appreciate recommendations - clear from their prospective Hypothyroidism: - Synthroid 88 mcg daily Asthma without Exacerbation: - Advair 1 puff BID Code Status: FULL RESUSCITATION Disposition: Await rehab vs SNF approval. Medically suitable pending approval. Continued [facility] stay due to: ambulation difficulties Discharge planning: rehab hospital (vs SNF)
[2017-11-15 14:53] VITALS: BP 125/70; PULSE 94; TEMP 36.7; O2SAT 95
[2017-11-15 15:35] VITALS: O2SAT 95
[2017-11-15] MEDS: SENNA 8.6 MG TAB PO SCH ×2 (20:30→21:00)
[2017-11-15 23:20] VITALS: BP 153/85; PULSE 99; TEMP 37.4; O2SAT 96
[2017-11-16] MEDS: ACETAMINOPHEN 500 MG TAB PO SCH ×2 (00:03→08:27)
[2017-11-16] MEDS: LEVOTHYROXINE 88 MCG TAB PO SCH (06:04)
[2017-11-16 07:17] VITALS: BP 142/68; PULSE 89; TEMP 36.7; O2SAT 94
--- NOTE | 2017-11-16 07:48 | Orthopedic Progress Note ---
Orthopedic Progress Note Date of Service Nov 16, 2017. Subjective Post OP Day: 3 Reports: feeling well, Denies: chest pain, SOB, nausea / vomiting, light headedness, calf pain Objective calves soft nontender, N/V intact (CHRONIC FOOT DROP), hip located, dressing C/D /I, A&O x3, toes mobile Date Time Temp Pulse Resp B/P (MAP) Pulse Ox O2 Delivery O2 Flow Rate FiO2 11/16/17 07:17 36.7 89 16 142/68 (92) 94 Room Air 11/16/17 00:10 Room Air 11/15/17 23:20 37.4 99 14 153/85 (107) 96 Room Air 11/15/17 15:35 95 Room Air 11/15/17 14:53 36.7 94 16 125/70 (88) 95 Room Air 11/15/17 07:50 Room Air Laboratory Results 24 Hours: Test 11/15/17 12:02 11/16/17 07:24 Hematocrit 26.8 % Hemoglobin 8.5 g/dL Assessment & Plan Assessment: POD #3 s/p 1. Open reduction and internal fixation of left 3-part displaced intertrochanteric hip fracture with a Synthes 10 mm x 130 degree titanium trochanteric fixation nail, 235 mm in length and 11 mm x 95 mm titanium helical blade and a 5 mm x 34 mm locking screw. 2. Closed treatment of left minimally displaced distal radius fracture with splinting Plan: Toe touch WB LLE at all times--platform walker for LUE. DVT prophylaxis--ASA 81 mg BID and YAZMIN stockings. PT/OT D/C planning--SNF vs rehab. - PATIENT PREFERS [facility]. WILL NEED REFERRAL. STABLE ORTHOPEDICALLY FOR TRANSFER ANYTIME. MEDICAL MANAGEMENT ORTHOPEDICALLY STABLE. WILL SIGN OFF. SEE DC INSTRUCTIONS. Inhouse Planning Pain Management: Morphine, Oxy IR DVT Prophylaxis: TEDs, SCDs, ASA Discharge Planning Discharge Planning: uncertain
[2017-11-16 08:06] LABS: HEMATOCRIT 26.2 % (37-47); HEMOGLOBIN 8.1 g/dL (12.0-16.0); MEAN CORPUSCULAR HGB CONC 30.9 g/dl (32-36); PLATELET COUNT 240 K/uL (130-400); RED CELL DISTRIBUTION WIDTH CV 16.3 % (11.5-14.5); RED CELL DISTRIBUTION WIDTH SD 50.2 fL (36.4-46.3); WHITE BLOOD COUNT 9.32 K/uL (4.8-10.8)
[2017-11-16 08:17] LABS: CALCIUM 8.1 mg/dl (8.5-10.1); CREATININE 0.54 mg/dl (0.60-1.20)
[2017-11-16] MEDS: MULTIVITAMIN TAB PO SCH (08:26)
[2017-11-16] MEDS: PANTOprazole SOD 40 MG TAB PO SCH (08:26)
[2017-11-16] MEDS ORDERED: HYDR-5688 PO (09:07)
[2017-11-16] MEDS ORDERED: ACET-24 PO (09:07)
[2017-11-16] MEDS ORDERED: ASPEC81 PO (09:07)
[2017-11-16] MEDS ORDERED: ERGO500011 PO (09:07)
[2017-11-16] MEDS ORDERED: MULT-890 PO (09:07)
[2017-11-16] MEDS ORDERED: CLC100 PO (09:07)
--- NOTE | 2017-11-16 09:13 | Discharge Instructions ---
Discharge Instructions Date of Service Nov 16, 2017. Admission Reason for Admission: Closed Left Hip Fracture Discharge Discharge Diagnosis / Problem: Closed L Hip Fx and L Wrist Fx Discharge Goals Goal(s): Decrease discomfort, Improve function, Increase independence Activity Recommendations Activity Level: Assistance Required Therapies: Physical Therapy, Occupational Therapy . Additional Information Patient informed of condition: Yes Advance Directives: No DNR: No Level of Care: Acute Rehab Communicable Disease: No Prognosis: Improving Garcia Catheter: No Instructions / Follow-Up Instructions / Follow-Up 82 years old female with Hx of Yzunvif-Pinoh-Cvxfw disease, hypothyroidism and asthma. Status post mechanical fall with acute impacted nondisplaced fracture of the distal radial metaphysis and Angulated mildly comminuted intertrochanteric fracture of the left femur. Mechanical Fall 2/2 Possible Osteoporosis: Impacted Non-Displaced Distal Radial Metaphysis Fx and Angulated Comminuted Intertrochanteric Fx of L Femur: H/O Nrzndfx-Goipa-Qejtn Disease with B/L Foot Drop - S/P ORIF with Trochanteric Nail and Volar Splint for L Wrist - Vitamin D 50,000 IU weekly (Monday) for 7 more weeks - could consider daily supplementation concurrently or after finishing the 7 weeks - Only utilizing Tylenol in the hospital - would encourage this if this covers pain -- Will give an Rx for [place] 1 tablet Q4H PRN Pain if more severe pain especially with therapy - Recommend continued bowel regimen - Colace BID; can use Miralax if necessary - Orthopedic Surgery followed - please review their D/C instructions for any limitations - DVT prophylaxis with ASA 81 mg daily x 4 weeks Hypothyroidism: - Synthroid 88 mcg daily Asthma without Exacerbation: - Advair 1 puff BID Code Status: FULL RESUSCITATION Disposition: Recommend repeat CBC in next 3-4 days to assess for stable hemoglobin. Some post-operative anemia but asymptomatic -- Hgb currently 8.1 - Recommend PCP follow up in next 7-14 days - Recommend outpatient follow-up with orthopedics per their recommendations Current Hospital Diet Patient's current hospital diet: Regular Diet Discharge Diet Recommended Diet: Regular Diet Procedures Procedures Performed: 1. ORIF Left 3 part displaced intertrochanteric hip fracture with Synthes Trochanteric Fixation Nail 2. Closed treatment left minimally displaced distal radius fracture with volar splinting Pending Studies Studies pending at discharge: no Medical Emergencies . Who to Call and When: Medical Emergencies: If at any time you feel your situation is an emergency, please call 911 immediately. . Non-Emergent Contact Non-Emergency issues call your: Primary Care Provider Call Non-Emergent contact if: you have a fever, your pain is concerning you, you have any medication questions . . "Provider Documentation" section prepared by Linette Oakley. . Core Measure Problem Core Measures: None [place] Drug Monitoring Program Search Results: patient reviewed within database (no records), no issues identified
[2017-11-16] MEDS ORDERED: PRVHFAIN INH (10:19)
[2017-11-16 12:13] VITALS: BP 142/68; PULSE 89; TEMP 36.7; O2SAT 94
--- NOTE | 2017-11-16 18:13 | Discharge Summary ---
Discharge Summary Date of Service Nov 16, 2017. Discharge Summary Admission Date: Nov 12, 2017 at 18:49 Discharge Date: Nov 16, 2017 Discharge Disposition: Rehab Principal Diagnosis: L Hip Fx S/P Nail and L Wrist/Radial Fx Problems/Secondary Diagnoses: 1. Vrtxfuv-Swhih-Iausr Disease with B/L Foot Drop 2. Hypothyroidism 3. Asthma. Procedures: PELVIS 1 OR 2 VIEW ROUTINE FINDINGS: Angulated mildly comminuted intertrochanteric fracture of the left femur. The lesser tuberosity is displaced medially. There is significant coxa vara angulation. Degenerative changes of the bilateral hip joints noted. The left femoral head remains congruent within the acetabulum. The remainder of the bony pelvis is intact. Degenerative changes of the lower lumbar spine. IMPRESSION: Angulated mildly comminuted intertrochanteric fracture of the left femur. L WRIST MIN 3 VIEWS ROUTINE FINDINGS: Mildly impacted nondisplaced fracture of the distal radial metaphysis, which appears acute. This does not appear to extend into the radiocarpal articulation. Distal radial ulnar joint preserved. Osteophytosis, joint space loss, subchondral sclerosis, and cystic change at the first carpometacarpal articulation. Osteopenia suspected. Mild soft tissue swelling over the carpus suggested. IMPRESSION: 1. Acute impacted nondisplaced fracture of the distal radial metaphysis. 2. Advanced degenerative changes of the first carpometacarpal articulation characteristic of osteoarthritis. 3. Osteopenia. Consultations: 1. Orthopedics 2. PT/OT Medication Reconciliation New Medications: Hydrocodone/Acetaminophen 5MG/325MG ([place] 5MG/325MG) Tab 1 TABLET PO Q4H PRN for Pain for 3 Days, #10 TAB Take for severe pain. Acetaminophen (Sb Non-Aspirin Extra Stre) 500 Mg Tab 1000 MG PO Q8H PRN for Pain for 14 Days, #84 TAB Aspirin (Aspirin EC Low Dose) 81 Mg Ectab 81 MG PO Q12 for 30 Days, #60 TABS Docusate Sodium (Docusate Sodium) 100 Mg Cap 100 MG PO BID for 30 Days, #60 CAP Ergocalciferol (Vitamin D 09477 Unit) 50,000 Unit Cap 63051 INTERUNIT PO [place]@0900, #7 CAP Take one dose on Monday each week for 7 more weeks Multiple Vitamin (Daily-Jonathan) 1 Tab Tab 1 TAB PO QAM for 30 Days, #30 TAB Continued Medications: Albuterol (Ventolin Hfa) 60 Puffs/5400 Mcg Aers 2 PUFFS INH QID PRN for SOB/Wheezing Fluticasone Prop/Salmeterol (Advair Diskus 100/50 60 Dose) 1 Ea Aerp 1 PUFF INH BID Levothyroxine Sodium (Synthroid) 88 Mcg Tab 88 MCG PO DAILY, TAB Omeprazole (Prilosec) 20 Mg Capcr 20 MG PO DAILY, CAP Discharge Exam Review of Systems: Constitutional: No fever, No chills Respiratory: No cough, No shortness of breath Cardiovascular: No chest pain Abdomen: No pain, No nausea, No vomiting, No diarrhea, No constipation Musculoskeletal: + joint pain (mild L hip and L wrist pain - controlled with Tylenol), No swelling, No calf pain Genitourinary - Female: No dysuria Hematologic / Lymphatic: No abnormal bleeding/bruising Physical Exam: General Appearance: WD/WN, no apparent distress Eyes: sclerae normal ENT: hearing grossly normal Neck: supple, no JVD, trachea midline Respiratory/Chest: lungs clear, normal breath sounds, no respiratory distress, no accessory muscle use Cardiovascular: regular rate, rhythm, no gallop, no murmur Abdomen / GI: normal bowel sounds, non tender, soft Extremities: normal capillary refill, no pedal edema, + pertinent finding ( volar splint to L wrist - good cap refill; motor function intact to fingers and toes) Neurologic/Psychiatric: alert Skin: normal color, warm/dry Hospital Course ADMISSION: 82 years old female with Hx of Eoowenh-Uurvg-Hcbjr disease, hypothyroidism and asthma. was in her regular state of health until today. she tripped over her toe ( secondary to her Upyprjh-Nyggz-Skffe disease she has a foot drop ). she fell on the floor and hit her left hip and left wrist. she did not hit her head, did not loose consciousness imaging in ED showed Acute impacted nondisplaced fracture of the distal radial metaphysis and Angulated mildly comminuted intertrochanteric fracture of the left femur. HOSPITAL COURSE: 82 years old female with Hx of Zkvtunp-Zfzcf-Ilzab disease, hypothyroidism and asthma. Status post mechanical fall with acute impacted nondisplaced fracture of the distal radial metaphysis and Angulated mildly comminuted intertrochanteric fracture of the left femur. Mechanical Fall 2/2 Possible Osteoporosis: Impacted Non-Displaced Distal Radial Metaphysis Fx and Angulated Comminuted Intertrochanteric Fx of L Femur: H/O Egpjfbx-Gvbpm-Ehazi Disease with B/L Foot Drop - S/P ORIF with Trochanteric Nail and Volar Splint for L Wrist - Vitamin D 50,000 IU weekly (Monday) - likely can then continue daily supplementation concurrently or after finishing weekly dosing - recommend 7 more weeks of tx - Pain management - Only reporting needing Tylenol but did supply Rx for [place] PRN especially if more pain with PT/OT - Orthopedic Surgery followed -- Toe Touch WB LLE at all times - platform walker for LUE -- ASA 81 mg BID for DVT Prophylaxis -- Outpatient F/U in next 2-3 weeks Hypothyroidism: - Synthroid 88 mcg daily Asthma without Exacerbation: - Advair 1 puff BID and Albuterol inhaler PRN Code Status: FULL RESUSCITATION Disposition: Rehab at [facility] Total Time Spent: Greater than 30 minutes This includes examination of the patient, discharge planning, medication reconciliation, and communication with other providers. Discharge Instructions Please refer to the electronic Patient Visit Report (Discharge Instructions) for additional information. Additional Copies To [facility]; Michel Cesar M.D.
== END 2017-11-16 16:08 | DRG 482 ==
LOC: EDBD 16:40 → C.EDC 16:41 → C.3E 18:49 → ENRESERV 19:35
PROVIDERS: ADMIT Internal Medicine; ATTEND Hospitalist
PROC: 2W3DX1Z Immobilization of Left Lower Arm using Splint (ICD-10-PCS; principal; 2017-11-12)
PROC: 0QS704Z Reposition Left Upper Femur with Internal Fixation Device, Open Approach (ICD-10-PCS; principal; 2017-11-12)
DX: M80.052A Age-related osteoporosis with current pathological fracture, left femur, initial encounter for fracture (principal); M80.032A Age-related osteoporosis with current pathological fracture, left forearm, initial encounter for fracture; G60.0 Hereditary motor and sensory neuropathy; M21.371 Foot drop, right foot; M21.372 Foot drop, left foot; E03.9 Hypothyroidism, unspecified; J45.909 Unspecified asthma, uncomplicated; Z51.81 Encounter for therapeutic drug level monitoring; Z79.899 Other long term (current) drug therapy; Z82.49 Family history of ischemic heart disease and other diseases of the circulatory system; Z83.3 Family history of diabetes mellitus; W01.0XXA Fall on same level from slipping, tripping and stumbling without subsequent striking against object, initial encounter; Y93.E9 Activity, other interior property and clothing maintenance; Y92.009 Unspecified place in unspecified non-institutional (private) residence as the place of occurrence of the external cause; Y99.8 Other external cause status

== ENCOUNTER → 2017-12-07 | Outpatient (CLI) | payer OTHER ==
[~2017-12-07] MED LIST changes: +ACET-24 PO; +ASPI-320 PO; +CLC100 PO; +ERGO500011 PO; +MULT-890 PO; +PRVHFAIN INH; -SULF800T23 PO
[2017-12-07 13:16] LABS: HEMATOCRIT 34.2 % (37-47); HEMOGLOBIN 10.6 g/dL (12.0-16.0); MEAN CELL VOLUME 89.3 fL (80-100); MEAN CORPUSCULAR HEMOGLOBIN 27.7 pg (25-34); MEAN PLATELET VOLUME 8.9 fL (7.4-10.4); PLATELET COUNT 337 K/uL (130-400); RED CELL DISTRIBUTION WIDTH CV 18.9 % (11.5-14.5); RED CELL DISTRIBUTION WIDTH SD 61.6 fL (36.4-46.3); WHITE BLOOD COUNT 6.57 K/uL (4.8-10.8)
== END | disposition home or self-care (01) ==
LOC: C.LAB1850 12:25
PROVIDERS: ATTEND Physician Assistant Medical
DX: S62.109A Fracture of unspecified carpal bone, unspecified wrist, initial encounter for closed fracture (principal); X58.XXXA Exposure to other specified factors, initial encounter; D64.9 Anemia, unspecified

== ENCOUNTER → 2018-03-27 | Outpatient (CLI) | payer OTHER ==
[~2018-03-27] MED LIST changes: +ACET-1047 PO; -ACET-24 PO; -ASPI-320 PO; -CLC100 PO; -ERGO500011 PO; +FERR50TA3; +LVNIS40 SQ; +RXC5 PO
[2018-03-27 12:33] LABS: BASO % 0.2 %; BASO ABS # 0.01 K/uL (0-0.2); EOS % 1.8 %; EOS ABS # 0.12 K/uL (0-0.5); HEMATOCRIT 34.6 % (37-47); HEMOGLOBIN 10.7 g/dL (12.0-16.0); IG# 0.01 K/uL (0.00-0.02); LYMPH % 15.2 %; MEAN CELL VOLUME 93.5 fL (80-100); MEAN CORPUSCULAR HEMOGLOBIN 28.9 pg (25-34); MEAN CORPUSCULAR HGB CONC 30.9 g/dl (32-36); MEAN PLATELET VOLUME 9.9 fL (7.4-10.4); MONO % 5.9 %; MONO ABS # 0.39 K/uL (0.11-0.59); NEUT % 76.7 %; NEUT ABS # 5.03 K/uL (1.4-6.5); PLATELET COUNT 384 K/uL (130-400); RED CELL DISTRIBUTION WIDTH CV 16.8 % (11.5-14.5); RED CELL DISTRIBUTION WIDTH SD 57.8 fL (36.4-46.3); WHITE BLOOD COUNT 6.56 K/uL (4.8-10.8)
[2018-03-27 12:47] LABS: BLOOD UREA NITROGEN 18 mg/dl (7-18); CALCIUM 8.7 mg/dl (8.5-10.1); CARBON DIOXIDE 27 mmol/L (21-32); CREATININE 0.55 mg/dl (0.60-1.20); GLUCOSE 107 mg/dl (70-99); POTASSIUM 3.9 mmol/L (3.5-5.1); SODIUM 139 mmol/L (136-145)
== END | disposition home or self-care (01) ==
LOC: C.LAB1850 10:36
PROVIDERS: ATTEND Physician Assistant Medical
DX: D64.9 Anemia, unspecified (principal)